=== PATIENT | male | born 1960 | race Caucasian/White ===

== ENCOUNTER 2016-07-27 11:07 | Inpatient (IN) | payer MEDICARE, MEDICAID ==
[~2016-07-27] VITALS: Ht 177.8 cm; Wt 81.6 kg
[~2016-07-27 11:07] MED LIST: AMBIEN10 MG ORAL; ATIVAN1 MG ORAL; BENADRYL25 M3 PO; CYMBALTA30 MG ORAL; DILAUDID4 MG ORAL; DOCUSATE SODIU100 MG ORAL; DULCOLAX STOOL100 M1 PO; IBUPROFEN800 MG ORAL; MELATONIN3 MG ORAL; METHADONE HCL5 MG PO; MIRTAZAPINE15 MG ORAL; MULTI VITAMIN1 EACH ORAL; NEURONTIN300 MG ORAL; RESTORIL7.5 MG ORAL; SENNO8.6 MG ORAL
--- NOTE | 2016-07-27 11:19 | Emergency Room Report ---
History of Present Illness General Chief Complaint: Generalized Weakness Source: EMS Present Illness HPI 55 YOM here for 1-2 days of dizziness, worse with moving head, better with eyes closed. Worse with change in position. No associated fever/chills, headache, nausea/vomiting, chest pain, SOB. Never had before. Didnt take any OTC meds. Patient also c/o chronic left shoulder pain and back pain. EMR indicated history of cervicalgia, LS and TS sprain, DJD of c-spine, previous neck and shoulder fx. Patient also stating he fell on left shoulder and "broke something " 1 month ago. Went to outside hospital, tells me to "call them, I dont know what I broke but it was something." States his doctor gives him dilaudid and methadone, requesting same here. Review of EMR: Recent DISCHARGE DIAGNOSES: Include: 1. Status post syncopal versus mechanical fall. 2. Lumbago. 3. Cervicalgia. 4. Lumbar sprain. 5. Thoracic sprain. 6. Degenerative joint disease, cervical spine. 7. Old rib fractures. 8. History of neck and shoulder fracture in 2014. 9. Depression with anxiety. Allergies: Coded Allergies: No Known Allergies (Unverified , 08/10/13) Patient History Past Medical History: see triage record, old chart reviewed Past Surgical History: other - See HPI Pertinent Family History: none Social History: Denies: alcohol use, drug use, smoking Immunizations: UTD Reviewed Nursing Documentation: PMH: Agreed, PSxH: Agreed Nursing Documentation-PMH Past Medical History: No History, Except For Hx Hypertension: No Hx Asthma: No Hx COPD: No Hx Diabetes: No Hx Cancer: No Hx Gastrointestinal Problems: No Hx Neurological Problems: No - Neck & shoulder Fracture 08/11/2014 Hx Seizures: Yes Review of Systems All Other Systems: negative except mentioned in HPI Physical Exam Vital Signs Date Time Temp Pulse Resp B/P Pulse Ox O2 Delivery O2 Flow Rate FiO2 07/27/16 11:08 97.9 91 18 139/99 97 Room Air Sp02 EP Interpretation: reviewed, normal General Appearance: normal inspection, well appearing, no apparent distress, alert, GCS 15, non-toxic Head: normocephalic, atraumatic Eyes: bilateral eye EOMI, bilateral eye PERRL, bilateral eye other - Horizontal nystagmus ENT: normal ENT inspection, hearing grossly normal, normal voice, other - + rodríguez hallpike maneuver positive R>L Neck: normal inspection Respiratory: normal inspection, lungs clear, normal breath sounds, no respiratory distress, no retraction, no wheezing Cardiovascular #1: regular rate, rhythm, no edema Gastrointestinal: normal inspection, normal bowel sounds, non tender, soft, no guarding, no hernia Genitourinary: no CVA tenderness Musculoskeletal: normal inspection, back normal, normal range of motion, non- tender, no calf tenderness, Chris's Sign negative Neurologic: normal inspection, alert, oriented x3, responsive, 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 Afebrile. No focal neuro deficits. Low suspicion for SAH, meningitis, posterior CVA given well apperance Improved with PO valium Low suspicion for ACS as cause of dizzines given +rodríguez-hallpike, nystagmus - looks more like BPPV. No known CAD risk factors Also concern for narcotic-seeking behavior given multiple visits for chronic pain, asking specifically for dilaudid, on methadone currently DC back to [facility] with Meclizine, ativan for severe dizziness, and recommended ENT followup for BPPV Last Vital Signs Date Time Temp Pulse Resp B/P Pulse Ox O2 Delivery O2 Flow Rate FiO2 07/27/16 11:08 97.9 91 18 139/99 97 Room Air Status: improved Disposition: ASSISTED LIVING Scripts Lorazepam* (ATIVAN*) 0.5 Mg Tablet 0.5 MG ORAL once daily for vertigo for 7 Days, #10 TAB Prov: ANABELLE GAR M.D. 07/27/16 Meclizine Hcl* (MECLIZINE*) 25 Mg Tablet 25 MG ORAL THREE TIMES A DAY for 7 Days, #30 TAB Prov: ANAEBLLE GAR M.D. 07/27/16 ANABELLE GAR M.D. Jul 27, 2016 11:19
[2016-07-27 13:22] VITALS: BP 123/83
[2016-07-27] MEDS ORDERED: ATIVAN0.5 MG ORAL (13:26)
[2016-07-27] MEDS ORDERED: MECLIZINE HCL25 MG ORAL (13:26)
[2016-07-27 14:59] VITALS: BP 122/93
[2016-07-27 16:26] LABS: BASOPHILS % (AUTO) 0.8 % (0.0-2.0); EOSINOPHILS % (AUTO) 0.3 % (0.0-3.0); LYMPHOCYTES % (AUTO) 18.7 % (20.0-45.0); MEAN CORPUSCULAR HEMOGLOBIN 30.6 PG (27.0-31.0); MEAN CORPUSCULAR HGB CONC 33.3 G/DL (32.0-36.0); MEAN CORPUSCULAR VOLUME 92 FL (80-99); MEAN PLATELET VOLUME 8.7 FL (6.5-10.1); MONOCYTES % (AUTO) 7.6 % (1.0-10.0); NEUTROPHILS % (AUTO) 72.6 % (45.0-75.0); PLATELET COUNT 317 K/UL (150-450); RED BLOOD COUNT 5.07 M/UL (4.70-6.10); RED CELL DISTRIBUTION WIDTH 11.8 % (11.6-14.8); WHITE BLOOD COUNT 9.1 K/UL (4.8-10.8)
[2016-07-27 16:28] LABS: TROPONIN I < 0.30 ng/mL (<=0.30)
[2016-07-27 16:29] LABS: INR 1.1 (0.9-1.1); PROTHROMBIN TIME 10.9 SEC (9.30-11.50)
[2016-07-27 16:34] LABS: ALANINE AMINOTRANSFERASE 16 U/L (3-41); ALBUMIN/GLOBULIN RATIO 1.3 (1.0-2.7); ANION GAP 20 (5-15); ASPARTATE AMINO TRANSFERASE 18 U/L (5-40); CALCIUM 9.1 mg/dL (8.6-10.2); CARBON DIOXIDE 24 mEQ/L (20-30); CHLORIDE 97 mEQ/L (98-107); CREATININE 0.8 mg/dL (0.7-1.2); GLOMERULAR FILTRATION RATE > 60 mL/min (>60); HEMOLYSIS 44; LIPASE 15 U/L (< 60); POTASSIUM 3.9 mEQ/L (3.4-4.9); SODIUM 141 mEQ/L (135-145); TOTAL PROTEIN 7.2 g/dL (6.6-8.7)
[2016-07-27 17:50] VITALS: BP 118/96
[2016-07-27 18:35] VITALS: BP 108/78
[2016-07-27 20:00] VITALS: BP 112/80
[2016-07-27] MEDS: HYDROmorphone 4mg tab ORAL SCH (20:45)
[2016-07-27] MEDS ORDERED: LORazepam Inj 2mg/ml 1ml IV PRN (20:45)
[2016-07-27] MEDS ORDERED: Mylanta II UD 30ml ORAL PRN (20:45)
[2016-07-27] MEDS ORDERED: Morphine Sulfate 2mg/ml Inj IVP PRN (20:45)
[2016-07-27] MEDS ORDERED: Miralax 17gm pkt ORAL PRN (20:45)
[2016-07-27] MEDS ORDERED: Zolpidem 5mg tab ORAL PRN (20:45)
[2016-07-27] MEDS: LORazepam 0.5mg tab ORAL SCH (22:57)
[2016-07-28] VITALS: BP 114/78
[2016-07-28] MEDS: HYDROmorphone 4mg tab ORAL SCH ×6 (00:30→20:36)
[2016-07-28 04:00] VITALS: BP 129/76
[2016-07-28] MEDS: LORazepam 0.5mg tab ORAL SCH ×3 (05:47→21:46)
[2016-07-28 06:22] LABS: BASOPHILS % (AUTO) 0.9 % (0.0-2.0); EOSINOPHILS % (AUTO) 1.8 % (0.0-3.0); LYMPHOCYTES % (AUTO) 29.8 % (20.0-45.0); MEAN CORPUSCULAR HEMOGLOBIN 30.9 PG (27.0-31.0); MEAN CORPUSCULAR HGB CONC 33.6 G/DL (32.0-36.0); MEAN CORPUSCULAR VOLUME 92 FL (80-99); MONOCYTES % (AUTO) 9.9 % (1.0-10.0); NEUTROPHILS % (AUTO) 57.6 % (45.0-75.0); PLATELET COUNT 309 K/UL (150-450); RED BLOOD COUNT 4.79 M/UL (4.70-6.10); WHITE BLOOD COUNT 6.8 K/UL (4.8-10.8)
[2016-07-28 06:34] LABS: APPEARANCE,URINE CLEAR; KETONES,URINE NEGATIVE (NEGATIVE); LEUKOCYTE ESTERASE ,URINE NEGATIVE (NEGATIVE); NITRITE,URINE NEGATIVE (NEGATIVE); PH,URINE 6 (4.5-8.0); PROTEIN,URINE NEGATIVE (NEGATIVE); UROBILINOGEN,URINE NORMAL MG/DL (0.0-1.0)
[2016-07-28 06:40] LABS: ALANINE AMINOTRANSFERASE 15 U/L (3-41); ALBUMIN/GLOBULIN RATIO 1.3 (1.0-2.7); ANION GAP 15 (5-15); ASPARTATE AMINO TRANSFERASE 14 U/L (5-40); CALCIUM 8.8 mg/dL (8.6-10.2); CARBON DIOXIDE 27 mEQ/L (20-30); CHLORIDE 97 mEQ/L (98-107); CHOLESTEROL 187 mg/dL (< 200); CHOLESTEROL/HDL RATIO 3.6 (3.3-4.4); CREATININE 0.8 mg/dL (0.7-1.2); GLOMERULAR FILTRATION RATE > 60 mL/min (>60); HEMOLYSIS 2; LDL CHOLESTEROL (CALC.) 121 mg/dL (60-99); POTASSIUM 3.7 mEQ/L (3.4-4.9); SODIUM 139 mEQ/L (135-145); TOTAL PROTEIN 6.6 g/dL (6.6-8.7)
[2016-07-28 08:28] VITALS: BP 108/79
[2016-07-28] MEDS: DULoxetine 30mg cap ORAL SCH (09:16)
[2016-07-28] MEDS: Meclizine 25mg tab ORAL SCH ×3 (09:17→17:47)
[2016-07-28 11:56] VITALS: BP 110/77
[2016-07-28 16:20] VITALS: BP 108/71
[2016-07-28 20:00] VITALS: BP 104/74
--- NOTE | 2016-07-28 20:40 | History and Physical ---
History of Present Illness General Date patient seen: Jul 28, 2016 Reason for Hospitalization: Generalized Weakness Present Illness HPI 55 year old male with hx of chronic back pain, resides in nursing homes, brought in here for 1-2 days of dizziness. Worse with change in position. No associated fever/chills, headache, nausea/vomiting, chest pain, SOB. Het also c/ o chronic left shoulder pain and back pain. he has history of cervicalgia, LS and TS sprain, DJD of c-spine, previous neck and shoulder fx. Allergies: Coded Allergies: No Known Allergies (Unverified , 08/10/13) Medication History Scheduled Docusate Sodium* (Docusate Sodium*), 100 MG ORAL TWICE A DAY, (Reported) Duloxetine Hcl* (Cymbalta*), 60 MG ORAL DAILY Gabapentin (Neurontin), 300 MG ORAL FOUR TIMES A DAY, (Reported) Hydromorphone HCl (Dilaudid), 4 MG ORAL Q4H, (Reported) Ibuprofen* (Motrin*), 800 MG ORAL BID, (Reported) Lorazepam* (Ativan*), 1 MG ORAL THREE TIMES A DAY Lorazepam* (Ativan*), 0.5 MG ORAL once daily Meclizine Hcl* (Meclizine*), 25 MG ORAL THREE TIMES A DAY Methadone Hcl* (Methadone*), 5 MG PO BID, (Reported) Mirtazapine* (Remeron*), 7.5 MG ORAL BEDTIME Multivitamin (Multi Vitamin Daily), 1 TAB ORAL DAILY, (Reported) Sennosides* (Senno*), 2 TAB ORAL BEDTIME, (Reported) Temazepam* (Restoril*), 7.5 MG ORAL BEDTIME, (Reported) Scheduled PRN Docusate Sodium (Dulcolax Stool Softener), 100 MG PO BID PRN for Constipation, ( Reported) Melatonin (Melatonin), 9 MG ORAL BEDTIME PRN for Insomnia, (Reported) Zolpidem Tartrate* (Ambien*), 10 MG ORAL BEDTIME PRN for Insomnia, (Reported) Miscellaneous Medications Diphenhydramine HCl (Benadryl), 25 MG PO, (Reported) Patient History Healthcare decision maker Resuscitation status Full Code Advanced Directive on File Review of Systems All Other Systems: negative except mentioned in HPI Physical Exam General Appearance: WD/WN Lines, tubes and drains: peripheral HEENT: normocephalic, atraumatic Neck: non-tender, normal alignment Respiratory/Chest: chest wall non-tender, lungs clear Cardiovascular/Chest: normal peripheral pulses, normal rate Abdomen: normal bowel sounds, non tender Genitourinary/Rectal: normal genital exam Extremities: normal range of motion Last 24 Hour Vital Signs Date Time Temp Pulse Resp B/P Pulse Ox O2 Delivery O2 Flow Rate FiO2 07/28/16 18:47 96.3 07/28/16 18:07 96.3 07/28/16 16:20 96.3 94 20 108/71 96 Room Air 07/28/16 11:56 97.0 83 19 110/77 97 Room Air 83 07/28/16 08:28 97.8 85 19 108/79 95 Room Air 85 07/28/16 04:00 96.8 65 20 129/76 98 Room Air 07/28/16 00:00 96.8 66 20 114/78 96 Room Air 07/27/16 20:45 98.4 Intake and Output 07/27/16 07/28/16 19:00 07:00 Intake Total 120 ml 580 ml Output Total 400 ml Balance 120 ml 180 ml Intake Oral 120 ml 580 ml Output Urine Total 400 ml # Voids 1 Laboratory Tests Test 07/28/16 05:20 07/28/16 05:40 White Blood Count 6.8 K/UL (4.8-10.8) Red Blood Count 4.79 M/UL (4.70-6.10) Hemoglobin 14.8 G/DL (14.2-18.0) Hematocrit 44.0 % (42.0-52.0) Mean Corpuscular Volume 92 FL (80-99) Mean Corpuscular Hemoglobin 30.9 PG (27.0-31.0) Mean Corpuscular Hemoglobin Concent 33.6 G/DL (32.0-36.0) Red Cell Distribution Width 12.0 % (11.6-14.8) Platelet Count 309 K/UL (150-450) Mean Platelet Volume 9.0 FL (6.5-10.1) Neutrophils (%) (Auto) 57.6 % (45.0-75.0) Lymphocytes (%) (Auto) 29.8 % (20.0-45.0) Monocytes (%) (Auto) 9.9 % (1.0-10.0) Eosinophils (%) (Auto) 1.8 % (0.0-3.0) Basophils (%) (Auto) 0.9 % (0.0-2.0) Sodium Level 139 mEQ/L (135-145) Potassium Level 3.7 mEQ/L (3.4-4.9) Chloride Level 97 mEQ/L (98-107) L Carbon Dioxide Level 27 mEQ/L (20-30) Anion Gap 15 (5-15) Blood Urea Nitrogen 9 mg/dL (7-23) Creatinine 0.8 mg/dL (0.7-1.2) Estimat Glomerular Filtration Rate > 60 mL/min (>60) Glucose Level 88 mg/dL (74-106) Calcium Level 8.8 mg/dL (8.6-10.2) Total Bilirubin 0.3 mg/dL (0.0-1.2) Aspartate Amino Transf (AST/SGOT) 14 U/L (5-40) Alanine Aminotransferase (ALT/SGPT) 15 U/L (3-41) Alkaline Phosphatase 107 U/L (40-129) Total Protein 6.6 g/dL (6.6-8.7) Albumin 3.8 g/dL (3.5-5.2) Globulin 2.8 g/dL Albumin/Globulin Ratio 1.3 (1.0-2.7) Triglycerides Level 71 mg/dL (< 150) Cholesterol Level 187 mg/dL (< 200) LDL Cholesterol 121 mg/dL (60-99) H HDL Cholesterol 52 mg/dL (> 60) Cholesterol/HDL Ratio 3.6 (3.3-4.4) Thyroid Stimulating Hormone (TSH) 1.750 uIU/mL (0.300-4.500) Urine Color Pale yellow Urine Appearance Clear Urine pH 6 (4.5-8.0) Urine Specific [place] 1.005 (1.005-1.035) Urine Protein Negative (NEGATIVE) Urine Glucose (UA) Negative (NEGATIVE) Urine Ketones Negative (NEGATIVE) Urine Occult Blood Negative (NEGATIVE) Urine Nitrite Negative (NEGATIVE) Urine Bilirubin Negative (NEGATIVE) Urine Urobilinogen Normal MG/DL (0.0-1.0) Urine Leukocyte Esterase Negative (NEGATIVE) Urine Opiates Screen Negative (NEGATIVE) Urine Barbiturates Screen Negative (NEGATIVE) Phencyclidine (PCP) Screen Negative (NEGATIVE) Urine Amphetamines Screen Negative (NEGATIVE) Urine Benzodiazepines Screen Negative (NEGATIVE) Urine Cocaine Screen Negative (NEGATIVE) Urine Marijuana (THC) Screen Negative (NEGATIVE) Height (Feet): 5 Height (Inches): 10.00 Weight (Pounds): 180 Medications Current Medications Medications (Trade) Dose Ordered Sig/Nahomi Route PRN Reason Start Time Stop Time Status Last Admin Dose Admin Acetaminophen (Tylenol) 650 mg Q4H PRN ORAL fever 07/27/16 20:45 08/26/16 20:44 Al Hydroxide/Mg Hydroxide (Mylanta II) 30 ml Q6H PRN ORAL dyspepsia 07/27/16 20:45 08/26/16 20:44 Dextrose (Dextrose 50%) STAT PRN IV Hypoglycemia 07/27/16 20:45 08/26/16 20:44 Diazepam (Valium) 5 mg Q6H PRN ORAL For Anxiety 07/27/16 19:45 08/03/16 19:44 07/27/16 20:44 Diphenhydramine HCl (Benadryl) 25 mg EVERY 8 HOURS ORAL 07/27/16 22:00 08/26/16 21:59 07/28/16 13:27 Duloxetine HCl (Cymbalta) 60 mg DAILY ORAL 07/28/16 09:00 08/27/16 08:59 07/28/16 09:16 Gabapentin (Neurontin) 300 mg FOUR TIMES A DAY ORAL 07/27/16 21:00 08/26/16 20:59 07/28/16 17:47 Hydromorphone HCl (Dilaudid) 4 mg Q4H ORAL 07/27/16 20:45 08/03/16 20:44 07/28/16 17:08 Ibuprofen (Motrin) 800 mg BID ORAL 07/28/16 09:00 08/27/16 08:59 07/28/16 17:48 Lorazepam (Ativan 2mg/ml 1ml) 0.5 mg Q4H PRN IV For Anxiety 07/27/16 20:45 08/03/16 20:44 Lorazepam (Ativan) 0.5 mg EVERY 8 HOURS ORAL 07/27/16 22:00 08/03/16 21:59 07/28/16 13:27 Meclizine HCl (Antivert) 25 mg THREE TIMES A DAY ORAL 07/28/16 09:00 08/27/16 08:59 07/28/16 17:47 Methadone HCl (Methadone HCl) 5 mg BID ORAL 07/28/16 09:00 08/04/16 08:59 07/28/16 17:48 Mirtazapine (Remeron) 7.5 mg BEDTIME ORAL 07/27/16 21:00 08/26/16 20:59 07/27/16 22:57 Morphine Sulfate (Morphine Sulfate) 1 mg EVERY 4 HOURS PRN IVP For Pain 07/27/16 20:45 08/03/16 20:44 Ondansetron HCl (Zofran) 4 mg Q6H PRN IVP Nausea & Vomiting 07/27/16 20:45 08/26/16 20:44 Oxycodone/ Acetaminophen (Percocet 10/325) 1 tab Q4H PRN ORAL Severe Pain (Pain Scale 7-10) 07/27/16 19:45 08/03/16 19:44 07/27/16 20:45 Polyethylene Glycol (Miralax) 17 gm HSPRN PRN ORAL Constipation 07/27/16 20:45 08/26/16 20:44 Zolpidem Tartrate (Ambien) 5 mg HSPRN PRN ORAL Insomnia 07/27/16 20:45 08/26/16 20:44 Assessment/Plan Problem List: (1) Chronic neck pain ICD Codes: G89.29 - Other chronic pain; M54.2 - Chronic neck pain SNOMED: 8418213491256 (2) Multiple injuries due to trauma ICD Codes: T07 - Multiple injuries due to trauma SNOMED: 837292730 (3) Neck pain ICD Codes: M54.2 - Neck pain SNOMED: 87036796 (4) Cervical sprain ICD Codes: S13.9XXA - Sprain of joints and ligaments of unspecified parts of neck, initial encounter SNOMED: 747576662 (5) Malingering ICD Codes: Z76.5 - Malingerer [conscious simulation] SNOMED: 23085912 Assessment/Plan Neuro evaluation Pt/ot symptomatic treatment JULISSA JACOBS Jul 28, 2016 20:40
[2016-07-29] VITALS: BP 112/75
--- NOTE | 2016-07-29 | Cardiology Report ---
APPROVED REPORT EKG Measurement Heart [id number] Normal sinus rhythm Nonspecific T wave abnormality Abnormal ECG
[2016-07-29] MEDS: HYDROmorphone 4mg tab ORAL SCH ×6 (00:35→21:36)
[2016-07-29 04:00] VITALS: BP 109/75
[2016-07-29] MEDS: LORazepam 0.5mg tab ORAL SCH ×3 (05:32→21:36)
[2016-07-29 08:15] VITALS: BP 119/85
[2016-07-29] MEDS: Meclizine 25mg tab ORAL SCH ×3 (08:50→18:06)
[2016-07-29] MEDS: DULoxetine 30mg cap ORAL SCH (08:50)
[2016-07-29 11:30] VITALS: BP 117/77
[2016-07-29 16:00] VITALS: BP 107/76
--- NOTE | 2016-07-29 16:52 | Pulmonology Progress Note ---
Assessment/Plan Problems: (1) Chronic neck pain (2) Multiple injuries due to trauma (3) Neck pain (4) Cervical sprain (5) Malingering Assessment/Plan neuro evaluation pending pt/ot Subjective ROS Limited/Unobtainable: No Interval Events: no new complains Allergies: Coded Allergies: No Known Allergies (Unverified , 08/10/13) Objective Last 24 Hour Vital Signs Date Time Temp Pulse Resp B/P Pulse Ox O2 Delivery O2 Flow Rate FiO2 07/29/16 14:00 97.7 07/29/16 11:30 97.7 87 14 117/77 98 Room Air 07/29/16 09:49 97.2 07/29/16 08:15 97.2 91 16 119/85 98 Room Air 07/29/16 04:00 97.7 71 18 109/75 97 Room Air 07/29/16 00:00 97.3 68 18 112/75 96 Room Air 07/28/16 20:00 98.1 68 21 104/74 93 Room Air Intake and Output 07/28/16 07/29/16 19:00 07:00 Intake Total 360 ml 1300 ml Output Total 300 ml 600 ml Balance 60 ml 700 ml Intake Oral 360 ml 1300 ml Output Urine Total 300 ml 600 ml # Voids 2 3 General Appearance: WD/WN HEENT: normocephalic Respiratory/Chest: chest wall non-tender, lungs clear Cardiovascular: normal peripheral pulses, normal rate Abdomen: normal bowel sounds, soft, non tender Genitourinary: normal external genitalia Extremities: no clubbing Skin: no rash Microbiology Date/Time Source Procedure Growth Status 07/27/16 17:48 Nasal Nares MRSA Culture - Final NO METHICILLIN RESISTANT STAPH AUREUS... Complete 07/27/16 17:48 Rectum VRE Culture - Final NO VANCOMYCIN RESISTANT ENTEROCOCCUS ... Complete Current Medications Medications (Trade) Dose Ordered Sig/Nahomi Route PRN Reason Start Time Stop Time Status Last Admin Dose Admin Acetaminophen (Tylenol) 650 mg Q4H PRN ORAL fever 07/27/16 20:45 08/26/16 20:44 Al Hydroxide/Mg Hydroxide (Mylanta II) 30 ml Q6H PRN ORAL dyspepsia 07/27/16 20:45 08/26/16 20:44 Dextrose (Dextrose 50%) STAT PRN IV Hypoglycemia 07/27/16 20:45 08/26/16 20:44 Diazepam (Valium) 5 mg Q6H PRN ORAL For Anxiety 07/27/16 19:45 08/03/16 19:44 07/27/16 20:44 Diphenhydramine HCl (Benadryl) 25 mg EVERY 8 HOURS ORAL 07/27/16 22:00 08/26/16 21:59 07/29/16 14:00 Duloxetine HCl (Cymbalta) 60 mg DAILY ORAL 07/28/16 09:00 08/27/16 08:59 07/29/16 08:50 Gabapentin (Neurontin) 300 mg FOUR TIMES A DAY ORAL 07/27/16 21:00 08/26/16 20:59 07/29/16 13:01 Hydromorphone HCl (Dilaudid) 4 mg Q4H ORAL 07/27/16 20:45 08/03/16 20:44 07/29/16 13:01 Ibuprofen (Motrin) 800 mg BID ORAL 07/28/16 09:00 08/27/16 08:59 07/29/16 08:50 Lorazepam (Ativan 2mg/ml 1ml) 0.5 mg Q4H PRN IV For Anxiety 07/27/16 20:45 08/03/16 20:44 Lorazepam (Ativan) 0.5 mg EVERY 8 HOURS ORAL 07/27/16 22:00 08/03/16 21:59 07/29/16 14:00 Meclizine HCl (Antivert) 25 mg THREE TIMES A DAY ORAL 07/28/16 09:00 08/27/16 08:59 07/29/16 13:01 Methadone HCl (Methadone HCl) 5 mg BID ORAL 07/28/16 09:00 08/04/16 08:59 07/29/16 08:51 Mirtazapine (Remeron) 7.5 mg BEDTIME ORAL 07/27/16 21:00 08/26/16 20:59 07/28/16 20:36 Morphine Sulfate (Morphine Sulfate) 1 mg EVERY 4 HOURS PRN IVP For Pain 07/27/16 20:45 08/03/16 20:44 Ondansetron HCl (Zofran) 4 mg Q6H PRN IVP Nausea & Vomiting 07/27/16 20:45 08/26/16 20:44 Oxycodone/ Acetaminophen (Percocet 10/325) 1 tab Q4H PRN ORAL Severe Pain (Pain Scale 7-10) 07/27/16 19:45 08/03/16 19:44 07/27/16 20:45 Polyethylene Glycol (Miralax) 17 gm HSPRN PRN ORAL Constipation 07/27/16 20:45 08/26/16 20:44 Zolpidem Tartrate (Ambien) 5 mg HSPRN PRN ORAL Insomnia 07/27/16 20:45 08/26/16 20:44 JULISSA AJCOBS Jul 29, 2016 16:52
[2016-07-29 19:00] VITALS: BP 118/80
[2016-07-30] VITALS: BP 100/61
[2016-07-30] MEDS: HYDROmorphone 4mg tab ORAL SCH ×6 (00:52→20:53)
[2016-07-30 04:00] VITALS: BP 110/71
[2016-07-30] MEDS: LORazepam 0.5mg tab ORAL SCH ×3 (06:15→21:58)
[2016-07-30 08:00] VITALS: BP 98/70
[2016-07-30] MEDS: DULoxetine 30mg cap ORAL SCH (08:58)
[2016-07-30] MEDS: Meclizine 25mg tab ORAL SCH ×3 (08:59→18:43)
--- NOTE | 2016-07-30 10:26 | Diagnostic Imaging Report ---
APPROVED REPORT CPT Code: 41413 Present Symptoms Comments: Pain BILATERAL: Imaging reveals a patent deep venous system bilaterally. There is no evidence of thrombus within the femoral, popliteal or tibial segments. The greater saphenous veins are also within normal limits. Doppler indicates normal spontaneous flow within these segments.
[2016-07-30 12:00] VITALS: BP 101/63
--- NOTE | 2016-07-30 12:56 | Neurology Progress Note ---
Interim History Interim History ROS Limited/Unobtainable: No Review of Systems Neuro Review of Systems #[id number] Objective Physical Exam Last Vital Signs Date Time Temp Pulse Resp B/P Pulse Ox O2 Delivery O2 Flow Rate FiO2 07/30/16 09:57 96.6 07/30/16 08:00 63 18 98/70 95 Room Air WILMA GRIGGS Jul 30, 2016 12:56
--- NOTE | 2016-07-30 15:31 | Diagnostic Imaging Report ---
Indication: PAIN Technique: 3 views of the left shoulder Comparison: none Findings: No acute fractures. No dislocations. There is an old fracture deformity of the left distal clavicle. There are old healed fracture deformities of multiple left ribs. Impression:No acute process
--- NOTE | 2016-07-30 15:34 | Diagnostic Imaging Report ---
Indications: Neck pain Technique: Four views of the cervical spine Comparison: 08/10/2013 Findings:Exam is limited, due to limited ability to position the patient and limited ability of patient to cooperate. A lateral view, the cervical spine is well demonstrated to the bottom of C4. Remaining vertebral segments are not well demonstrated, although somewhat visualized on the swimmer's view. No prevertebral soft tissue swelling. There is slight straightening of the normal cervical lordosis, otherwise normal bony alignment. No definite acute fractures. There is degenerative disc space narrowing at C4-5 and C5-6. There is suggestion of degenerative neural foraminal stenosis at C6-7. The right neural foramina are not well visualized due to suboptimal positioning. Impression:. Limited exam, as described. No definite acute bony trauma Degenerative changes, as described
[2016-07-30 15:55] VITALS: BP 126/87
--- NOTE | 2016-07-30 16:01 | Diagnostic Imaging Report ---
Indication: AMS headache and dizziness Technique: sagittal T1 fast spin echo, axial T1 and T2 FLAIR PROPELLER, axial T2 FS PROPELLER, T2* GRE, axial diffusion weighted images, post contrast axial and coronal T1 FLAIR PROPELLER images. ADC and exponential ADC maps generated Comparison: 09/06/2015 CT scan Findings: . No abnormal areas of restricted diffusion to suggest acute infarction. No acute hemorrhage or edema. No mass effect nor midline shift. No abnormal contrast enhancement. Normal size ventricles and extra axial CSF spaces. Visualized orbits and sinuses are unremarkable. Vascular flow voids are preserved. Impression: Negative for acute intracranial bleed, mass effect, infarct, or contrast enhancing lesion
[2016-07-30 20:00] VITALS: BP 120/79
--- NOTE | 2016-07-30 22:17 | Consultation ---
DATE OF CONSULTATION: 07/30/2016 NEUROLOGICAL CONSULTATION CONSULTING PHYSICIAN: Dayron Schroeder M.D. REFERRING PHYSICIAN: Haris Lopez M.D. HISTORY OF PRESENT ILLNESS: The patient is a 55-year-old man, a resident of a nursing facility, seen neurological consultation to evaluate the recent onset of profound generalized weakness, inability to ambulate, positional dizziness, and severe intractable pain in his upper back and left shoulder. The patient informed me that he has a new evidence of left shoulder pain after he fell down and "fractured shoulder." In addition, pain from left arm radiating to left upper extremity, which he attributed to recently diagnosed C1, C2, and C3 injuries. The patient informed me that two weeks ago, he fell and fractured his left shoulder. He was taken to outside hospital, but no treatment was offered. On current admission, he was complaining of two days of dizziness, increasing with head movement, which he never had before. He complained of chronic pain in his left shoulder and upper back region. He was admitted. On admission, his vital signs are stable except blood pressure 139/99 and temperature 97.9. IMAGING STUDIES: He had venous duplex study. No thrombi noted. LABORATORY DATA: Laboratory work was obtained revealing normal CBC and coagulation. Chemistry panel was unremarkable except anion gap of 20. Lipid panel unremarkable except LDL 121. Normal lipase, TSH, and troponins. Drug screen is negative. Urinalysis was normal. Since admission to present, he indicates a sudden improvement. MEDICATIONS: His current treatment list includes Valium p.r.n., Advil p.r.n., Cymbalta 60 mg daily, Neurontin 300 mg q.i.d., Dilaudid 4 mg q.4 h., ibuprofen 800 mg b.i.d., lorazepam 0.5 mg q.8 h., meclizine 25 mg t.i.d., methadone 5 mg b.i.d., Remeron 7.5 mg at bedtime, oxycodone p.r.n., and zolpidem. PAST MEDICAL HISTORY: The patient, who is a very poor historian, was able to inform that he was in normal state of health until 2012 where he had a fall with a fracture of the cervical spine. In addition, two years ago, he had another fall injuring his spine in the mid dorsal area. The patient indicates since then, he is unable to ambulate, spends most of the day in bed or walker He is unaware of having any medical issues, otherwise, including no high blood pressure, no diabetes. The patient treated for chronic pain, opiate dependent. His previous admissions to this facility starting 2013 related to chronic neck pain. The patient treated for depression and anxiety. FAMILY HISTORY: Noncontributory. SOCIAL HISTORY: Resident of a nursing facility. The patient now indicates that he is in class action with nursing facility. REVIEW OF SYMPTOMS: Denies headaches, but admitted to having positional dizziness on admission, now improved. He has a persistent pain in the upper back, neck, and left shoulder, radiating to left upper extremity, which he feels it is a new finding. No urine or bowel incontinence. No chest pain. No palpitations. No respiratory problems. Denies drug abuse in the past. PHYSICAL EXAMINATION: GENERAL: A well-developed, well-nourished man, lying in bed, working on his computer. VITAL SIGNS: Stable. Blood pressure 98/70 and temperature 96.6. HEENT: Head, normocephalic. No evidence of trauma. Eyes, ears, and throat are clear. NECK: Supple with range of motion limited on lateral bending. THORACIC AND LUMBAR SPINE: No deformities. EXTREMITIES: Upper and lower extremities without clubbing, cyanosis, or edema. There is acute tenderness on palpation of the left shoulder. The patient refused to lift stating that this causes severe pain. There is a diffuse tenderness in the left arm as well. NEUROLOGIC: Mental Status: The patient is alert and oriented x3. Speech is fluent with no evidence of aphasia or apraxia. Emotionally labile, tense, and anxious. He had difficulties recalling dates and events of his medical history. CRANIAL NERVES: Cranial Nerve II: Pupils both responding to light and accommodation. Extraocular movement abnormal. There is an irregular left lateral gaze. Nystagmus with limited range of motion in his gaze on the right eye. CRANIAL NERVE V: Normal corneal responses. CRANIAL NERVE VII: No facial asymmetry. CRANIAL NERVE VIII: Grossly normal hearing. CRANIAL NERVES IX THROUGH XII: With normal limits. MOTOR EXAMINATION: Normal muscle tone. Strength 1/5 in both lower extremities and 5/5 in the right upper extremity, antalgic left arm. Deep tendon reflexes are brisk at 3+ bilaterally. Plantar response is mute. SENSORY EXAMINATION: Normal to pin stimulation. In both upper and lower extremities, no sensory level noted. GAIT: Not tested. IMPRESSION: 1. This 55-year-old man with a history of recent falls, presenting with cervical radiculopathy radiating to left arm. Rule out left shoulder fracture. 2. Nystagmus with a limited range of motion. Rule out a brainstem abnormality. Rule out toxic encephalopathy. 3. Positional dizziness, probable benign positional vertigo. 4. Anxiety and depression. 5. Chronic pain syndrome, opiate dependent. RECOMMENDATIONS: MRI of the brain. MRI of the cervical spine. X-ray of left shoulder. Pain management. Psychiatry evaluation. Thank you for allowing me to see this interesting patient in neurological consultation. Dayron Schroeder M.D. DR: ALYSSA JOB#: [id number] CC:
--- NOTE | 2016-07-30 23:15 | Pulmonology Progress Note ---
Assessment/Plan Problems: (1) Chronic neck pain (2) Multiple injuries due to trauma (3) Neck pain (4) Cervical sprain (5) Malingering Assessment/Plan neuro evaluation pending pt/ot Subjective ROS Limited/Unobtainable: No Gastrointestinal/Abdominal: Reports: nausea Neurologic: Reports: weakness Musculoskeletal: Reports: pain, stiffness, swelling Allergies: Coded Allergies: No Known Allergies (Unverified , 08/10/13) Objective Last 24 Hour Vital Signs Date Time Temp Pulse Resp B/P Pulse Ox O2 Delivery O2 Flow Rate FiO2 07/30/16 21:52 97.0 07/30/16 20:00 98.0 64 17 120/79 100 Room Air 07/30/16 15:55 97.0 97 16 126/87 96 Room Air 07/30/16 12:00 96.6 78 18 101/63 95 Room Air 07/30/16 09:57 96.6 07/30/16 08:00 96.6 63 18 98/70 95 Room Air 07/30/16 04:00 97.3 76 20 110/71 96 Room Air 07/30/16 00:00 98.1 75 20 100/61 96 Room Air Intake and Output 07/29/16 07/30/16 19:00 07:00 Intake Total 1800 ml 320 ml Output Total 850 ml 2200 ml Balance 950 ml -1880 ml Intake Oral 1800 ml 320 ml Output Urine Total 850 ml 2200 ml General Appearance: no acute distress HEENT: normocephalic, atraumatic, PERRL Respiratory/Chest: chest wall non-tender, decreased breath sounds, accessory muscle use Cardiovascular: normal peripheral pulses, normal rate, regular rhythm, no JVD Abdomen: normal bowel sounds, soft, non tender, no organomegaly Genitourinary: normal external genitalia Extremities: no cyanosis Skin: no rash, no lesions 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, 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 deficits Current Medications Medications (Trade) Dose Ordered Sig/Nahomi Route PRN Reason Start Time Stop Time Status Last Admin Dose Admin Acetaminophen (Tylenol) 650 mg Q4H PRN ORAL fever 07/27/16 20:45 08/26/16 20:44 Al Hydroxide/Mg Hydroxide (Mylanta II) 30 ml Q6H PRN ORAL dyspepsia 07/27/16 20:45 08/26/16 20:44 Dextrose (Dextrose 50%) STAT PRN IV Hypoglycemia 07/27/16 20:45 08/26/16 20:44 Diazepam (Valium) 5 mg Q6H PRN ORAL For Anxiety 07/27/16 19:45 08/03/16 19:44 07/27/16 20:44 Diphenhydramine HCl (Benadryl) 25 mg EVERY 8 HOURS ORAL 07/27/16 22:00 08/26/16 21:59 07/30/16 21:57 Duloxetine HCl (Cymbalta) 60 mg DAILY ORAL 07/28/16 09:00 08/27/16 08:59 07/30/16 08:58 Gabapentin (Neurontin) 300 mg FOUR TIMES A DAY ORAL 07/27/16 21:00 08/26/16 20:59 07/30/16 20:54 Hydromorphone HCl (Dilaudid) 4 mg Q4H ORAL 07/27/16 20:45 08/03/16 20:44 07/30/16 20:53 Ibuprofen (Motrin) 800 mg BID ORAL 07/28/16 09:00 08/27/16 08:59 07/30/16 08:58 Lorazepam (Ativan 2mg/ml 1ml) 0.5 mg Q4H PRN IV For Anxiety 07/27/16 20:45 08/03/16 20:44 Lorazepam (Ativan) 0.5 mg EVERY 8 HOURS ORAL 07/27/16 22:00 08/03/16 21:59 07/30/16 21:58 Meclizine HCl (Antivert) 25 mg THREE TIMES A DAY ORAL 07/28/16 09:00 08/27/16 08:59 07/30/16 18:43 Methadone HCl (Methadone HCl) 5 mg BID ORAL 07/28/16 09:00 08/04/16 08:59 07/30/16 18:43 Mirtazapine (Remeron) 7.5 mg BEDTIME ORAL 07/27/16 21:00 08/26/16 20:59 07/30/16 20:54 Morphine Sulfate (Morphine Sulfate) 1 mg EVERY 4 HOURS PRN IVP For Pain 07/27/16 20:45 08/03/16 20:44 Ondansetron HCl (Zofran) 4 mg Q6H PRN IVP Nausea & Vomiting 07/27/16 20:45 08/26/16 20:44 Oxycodone/ Acetaminophen (Percocet 10/325) 1 tab Q4H PRN ORAL Severe Pain (Pain Scale 7-10) 07/27/16 19:45 08/03/16 19:44 07/27/16 20:45 Polyethylene Glycol (Miralax) 17 gm HSPRN PRN ORAL Constipation 07/27/16 20:45 08/26/16 20:44 Zolpidem Tartrate (Ambien) 5 mg HSPRN PRN ORAL Insomnia 07/27/16 20:45 08/26/16 20:44 JULISSA JACOBS Jul 30, 2016 23:15
[2016-07-31] VITALS: BP 118/76
[2016-07-31] MEDS: HYDROmorphone 4mg tab ORAL SCH ×6 (00:54→21:23)
[2016-07-31 04:00] VITALS: BP 115/78
[2016-07-31] MEDS: LORazepam 0.5mg tab ORAL SCH ×3 (05:51→22:25)
[2016-07-31 08:21] VITALS: BP 116/73
[2016-07-31] MEDS: Meclizine 25mg tab ORAL SCH ×3 (08:46→17:19)
[2016-07-31] MEDS: DULoxetine 30mg cap ORAL SCH (08:46)
[2016-07-31 11:56] VITALS: BP 100/70
[2016-07-31 16:00] VITALS: BP 109/70
[2016-07-31 20:00] VITALS: BP 109/68
--- NOTE | 2016-07-31 23:31 | Pulmonology Progress Note ---
Assessment/Plan Problems: (1) Chronic neck pain (2) Multiple injuries due to trauma (3) Neck pain (4) Cervical sprain (5) Malingering Assessment/Plan neuro evaluation pending pt/ot Subjective ROS Limited/Unobtainable: No Constitutional: Reports: anorexia, fatigue Neurologic: Reports: headache, numbness, weakness Psychiatric: Reports: anxiety, depression Musculoskeletal: Reports: pain, stiffness, swelling Allergies: Coded Allergies: No Known Allergies (Unverified , 08/10/13) Objective Last 24 Hour Vital Signs Date Time Temp Pulse Resp B/P Pulse Ox O2 Delivery O2 Flow Rate FiO2 07/31/16 20:00 97.9 82 18 109/68 97 Room Air 07/31/16 16:00 98.2 78 18 109/70 94 Room Air 07/31/16 11:56 97.5 66 19 100/70 96 Room Air 07/31/16 08:21 97.6 85 19 116/73 96 Room Air 07/31/16 05:49 97.7 07/31/16 04:00 97.7 77 18 115/78 97 Room Air 07/31/16 00:00 97.8 63 18 118/76 100 Room Air Intake and Output 07/30/16 07/31/16 19:00 07:00 Intake Total 570 ml 980 ml Output Total 450 ml 1300 ml Balance 120 ml -320 ml Intake Oral 570 ml 980 ml Output Urine Total 450 ml 1300 ml # Voids 3 General Appearance: no acute distress HEENT: normocephalic, atraumatic, PERRL Respiratory/Chest: chest wall non-tender, lungs clear, decreased breath sounds Cardiovascular: normal peripheral pulses, normal rate, regular rhythm, no JVD Abdomen: normal bowel sounds, soft, non tender, no organomegaly, non distended Genitourinary: normal external genitalia Extremities: no cyanosis Skin: no rash, lesions 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, 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 deficits, oriented x 3, depressed affect Current Medications Medications (Trade) Dose Ordered Sig/Nahomi Route PRN Reason Start Time Stop Time Status Last Admin Dose Admin Acetaminophen (Tylenol) 650 mg Q4H PRN ORAL fever 07/27/16 20:45 08/26/16 20:44 Al Hydroxide/Mg Hydroxide (Mylanta II) 30 ml Q6H PRN ORAL dyspepsia 07/27/16 20:45 08/26/16 20:44 Dextrose (Dextrose 50%) STAT PRN IV Hypoglycemia 07/27/16 20:45 08/26/16 20:44 Diazepam (Valium) 5 mg Q6H PRN ORAL For Anxiety 07/27/16 19:45 08/03/16 19:44 07/27/16 20:44 Diphenhydramine HCl (Benadryl) 25 mg EVERY 8 HOURS ORAL 07/27/16 22:00 08/26/16 21:59 07/31/16 22:25 Duloxetine HCl (Cymbalta) 60 mg DAILY ORAL 07/28/16 09:00 08/27/16 08:59 07/31/16 08:46 Gabapentin (Neurontin) 300 mg FOUR TIMES A DAY ORAL 07/27/16 21:00 08/26/16 20:59 07/31/16 21:23 Hydromorphone HCl (Dilaudid) 4 mg Q4H ORAL 07/27/16 20:45 08/03/16 20:44 07/31/16 21:23 Ibuprofen (Motrin) 800 mg BID ORAL 07/28/16 09:00 08/27/16 08:59 07/31/16 17:18 Lorazepam (Ativan 2mg/ml 1ml) 0.5 mg Q4H PRN IV For Anxiety 07/27/16 20:45 08/03/16 20:44 Lorazepam (Ativan) 0.5 mg EVERY 8 HOURS ORAL 07/27/16 22:00 08/03/16 21:59 07/31/16 22:25 Meclizine HCl (Antivert) 25 mg THREE TIMES A DAY ORAL 07/28/16 09:00 08/27/16 08:59 07/31/16 17:19 Methadone HCl (Methadone HCl) 5 mg BID ORAL 07/28/16 09:00 08/04/16 08:59 07/31/16 17:18 Mirtazapine (Remeron) 15 mg BEDTIME ORAL 07/31/16 21:00 08/30/16 20:59 07/31/16 21:23 Morphine Sulfate (Morphine Sulfate) 1 mg EVERY 4 HOURS PRN IVP For Pain 07/27/16 20:45 08/03/16 20:44 Ondansetron HCl (Zofran) 4 mg Q6H PRN IVP Nausea & Vomiting 07/27/16 20:45 08/26/16 20:44 Oxycodone/ Acetaminophen (Percocet 10/325) 1 tab Q4H PRN ORAL Severe Pain (Pain Scale 7-10) 07/27/16 19:45 08/03/16 19:44 07/27/16 20:45 Polyethylene Glycol (Miralax) 17 gm HSPRN PRN ORAL Constipation 07/27/16 20:45 08/26/16 20:44 Zolpidem Tartrate (Ambien) 5 mg HSPRN PRN ORAL Insomnia 07/27/16 20:45 08/26/16 20:44 JULISSA JACOBS Jul 31, 2016 23:31
[2016-08-01] VITALS: BP 111/72
[2016-08-01] MEDS: HYDROmorphone 4mg tab ORAL SCH ×6 (00:49→20:53)
--- NOTE | 2016-08-01 01:29 | Consultation ---
DATE OF CONSULTATION: 07/31/2016 HISTORY OF PRESENT ILLNESS: This is a 55-year-old white male with a history of chronic back pain, anxiety disorder, and depression. He has been admitted to the hospital with a chief complaint of generalized weakness. Psychiatry was consulted as the patient complains of anxiety and insomnia. During the evaluation, the patient appeared to be bizarre and was focused on looking on his computer. He denied having a history of psychotic disorder. Denies any psychiatric hospitalizations. No suicide attempts in the past. PAST MEDICAL HISTORY: Significant for chronic back pain, dizziness, weakness, and hypertension. ALLERGIES: No known drug allergies. MEDICATIONS: At home include temazepam, sennosides, multivitamins, mirtazapine, methadone, meclizine, lorazepam, hydromorphone, gabapentin, and Cymbalta. SUBSTANCE ABUSE HISTORY: No history of illicit drug use or alcohol. However, it appears that the patient is taking opioid pain medication. MENTAL STATUS EXAMINATION: The patient is oriented 4x4. Mood is dysphoric. Affect was blunted and congruent with mood. Thought process is concrete. Thought content - there is no suicidal or homicidal ideation. ASSESSMENT: AXIS I: Major depressive disorder. Anxiety disorder. AXIS II: Deferred. AXIS III: As above. AXIS IV: Low. AXIS V: Global assessment of functioning 75. PLAN: 1. The patient will be continued on Cymbalta 60 mg daily. 2. We will increase the Remeron to 15 mg p.o. nightly. 3. We will continue to follow and readjust the medication. Audelai Thornton M.D. DR: DESTINY JOB#: [id number] CC:
[2016-08-01] MEDS: LORazepam 0.5mg tab ORAL SCH ×3 (06:42→22:31)
[2016-08-01 08:15] VITALS: BP 115/75
[2016-08-01] MEDS: Meclizine 25mg tab ORAL SCH ×3 (09:06→17:50)
[2016-08-01] MEDS: DULoxetine 30mg cap ORAL SCH (09:07)
[2016-08-01 12:00] VITALS: BP 103/68
[2016-08-01 16:00] VITALS: BP 111/66
--- NOTE | 2016-08-01 20:39 | Pulmonology Progress Note ---
Assessment/Plan Problems: (1) Chronic neck pain (2) Multiple injuries due to trauma (3) Neck pain (4) Cervical sprain (5) Malingering Assessment/Plan neuro evaluation pending pt/ot Subjective ROS Limited/Unobtainable: No Constitutional: Reports: chills, fatigue Neurologic: Reports: confusion, weakness Psychiatric: Reports: anxiety, depression Allergies: Coded Allergies: No Known Allergies (Unverified , 08/10/13) Objective Last 24 Hour Vital Signs Date Time Temp Pulse Resp B/P Pulse Ox O2 Delivery O2 Flow Rate FiO2 08/01/16 16:00 97.7 99 18 111/66 95 Room Air 08/01/16 12:00 98.1 73 23 103/68 97 Room Air 08/01/16 08:15 97.7 83 22 115/75 99 Room Air 08/01/16 00:00 97.7 76 18 111/72 94 Room Air Intake and Output 07/31/16 08/01/16 19:00 07:00 Intake Total 450 ml 960 ml Output Total 500 ml 2310 ml Balance -50 ml -1350 ml Intake Oral 450 ml 960 ml Output Urine Total 500 ml 2310 ml # Voids 2 General Appearance: no acute distress HEENT: normocephalic, atraumatic, PERRL Respiratory/Chest: chest wall non-tender, lungs clear, decreased breath sounds , accessory muscle use Cardiovascular: normal peripheral pulses, normal rate, regular rhythm, no JVD Abdomen: normal bowel sounds, soft, non tender, no organomegaly, non distended Genitourinary: normal external genitalia Extremities: no cyanosis Skin: no rash, no lesions 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, 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 deficits Current Medications Medications (Trade) Dose Ordered Sig/Nahomi Route PRN Reason Start Time Stop Time Status Last Admin Dose Admin Acetaminophen (Tylenol) 650 mg Q4H PRN ORAL fever 07/27/16 20:45 08/26/16 20:44 Al Hydroxide/Mg Hydroxide (Mylanta II) 30 ml Q6H PRN ORAL dyspepsia 07/27/16 20:45 08/26/16 20:44 Dextrose (Dextrose 50%) STAT PRN IV Hypoglycemia 07/27/16 20:45 08/26/16 20:44 Diazepam (Valium) 5 mg Q6H PRN ORAL For Anxiety 07/27/16 19:45 08/03/16 19:44 07/27/16 20:44 Diphenhydramine HCl (Benadryl) 25 mg EVERY 8 HOURS ORAL 07/27/16 22:00 08/26/16 21:59 08/01/16 14:16 Duloxetine HCl (Cymbalta) 60 mg DAILY ORAL 07/28/16 09:00 08/27/16 08:59 08/01/16 09:07 Gabapentin (Neurontin) 300 mg FOUR TIMES A DAY ORAL 07/27/16 21:00 08/26/16 20:59 08/01/16 17:50 Hydromorphone HCl (Dilaudid) 4 mg Q4H ORAL 07/27/16 20:45 08/03/16 20:44 08/01/16 16:42 Ibuprofen (Motrin) 800 mg BID ORAL 07/28/16 09:00 08/27/16 08:59 08/01/16 17:50 Lorazepam (Ativan 2mg/ml 1ml) 0.5 mg Q4H PRN IV For Anxiety 07/27/16 20:45 08/03/16 20:44 Lorazepam (Ativan) 0.5 mg EVERY 8 HOURS ORAL 07/27/16 22:00 08/03/16 21:59 08/01/16 14:16 Meclizine HCl (Antivert) 25 mg THREE TIMES A DAY ORAL 07/28/16 09:00 08/27/16 08:59 08/01/16 17:50 Methadone HCl (Methadone HCl) 5 mg BID ORAL 07/28/16 09:00 08/04/16 08:59 08/01/16 17:50 Mirtazapine (Remeron) 15 mg BEDTIME ORAL 07/31/16 21:00 08/30/16 20:59 07/31/16 21:23 Morphine Sulfate (Morphine Sulfate) 1 mg EVERY 4 HOURS PRN IVP For Pain 07/27/16 20:45 08/03/16 20:44 Ondansetron HCl (Zofran) 4 mg Q6H PRN IVP Nausea & Vomiting 07/27/16 20:45 08/26/16 20:44 Oxycodone/ Acetaminophen (Percocet 10/325) 1 tab Q4H PRN ORAL Severe Pain (Pain Scale 7-10) 07/27/16 19:45 08/03/16 19:44 07/27/16 20:45 Polyethylene Glycol (Miralax) 17 gm HSPRN PRN ORAL Constipation 07/27/16 20:45 08/26/16 20:44 Zolpidem Tartrate (Ambien) 5 mg HSPRN PRN ORAL Insomnia 07/27/16 20:45 08/26/16 20:44 JULISSA JACOBS Aug 01, 2016 20:39
[2016-08-02] VITALS: BP 95/64
[2016-08-02] MEDS: HYDROmorphone 4mg tab ORAL SCH ×6 (00:58→21:46)
[2016-08-02 04:00] VITALS: BP 92/70
[2016-08-02] MEDS: LORazepam 0.5mg tab ORAL SCH ×3 (06:00→22:25)
[2016-08-02] MEDS: Meclizine 25mg tab ORAL SCH ×3 (08:16→17:17)
[2016-08-02] MEDS: DULoxetine 30mg cap ORAL SCH (08:17)
[2016-08-02 08:42] VITALS: BP 106/66
[2016-08-02 11:39] VITALS: BP 101/77
[2016-08-02 16:00] VITALS: BP 117/70
[2016-08-02 19:00] VITALS: BP 102/59
--- NOTE | 2016-08-02 23:27 | Pulmonology Progress Note ---
Assessment/Plan Problems: (1) Chronic neck pain (2) Multiple injuries due to trauma (3) Neck pain (4) Cervical sprain (5) Malingering Assessment/Plan neuro evaluation pending pt/ot Subjective ROS Limited/Unobtainable: No Constitutional: Reports: anorexia, fatigue Neurologic: Reports: weakness Allergies: Coded Allergies: No Known Allergies (Unverified , 08/10/13) Objective Last 24 Hour Vital Signs Date Time Temp Pulse Resp B/P Pulse Ox O2 Delivery O2 Flow Rate FiO2 08/02/16 19:00 97.3 83 20 102/59 96 Room Air 08/02/16 17:16 97.3 08/02/16 16:00 97.3 85 20 117/70 96 Room Air 08/02/16 11:39 98.1 86 16 101/77 99 Room Air 08/02/16 08:42 97.3 82 15 106/66 98 Room Air 08/02/16 04:00 96.6 70 20 92/70 95 Room Air 08/02/16 00:00 96.4 68 18 95/64 94 Room Air Intake and Output 08/01/16 08/02/16 19:00 07:00 Intake Total 480 ml 1280 ml Output Total 1300 ml 2100 ml Balance -820 ml -820 ml Intake Oral 480 ml 1280 ml Output Urine Total 1300 ml 2100 ml # Voids 3 6 # Bowel Movements 1 General Appearance: no acute distress HEENT: normocephalic, atraumatic, PERRL Respiratory/Chest: chest wall non-tender, decreased breath sounds, accessory muscle use Cardiovascular: normal peripheral pulses, normal rate, regular rhythm, no JVD Abdomen: normal bowel sounds, soft, non tender, no organomegaly, non distended Genitourinary: normal external genitalia Extremities: no cyanosis Skin: no lesions 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, 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 Current Medications Medications (Trade) Dose Ordered Sig/Nahomi Route PRN Reason Start Time Stop Time Status Last Admin Dose Admin Acetaminophen (Tylenol) 650 mg Q4H PRN ORAL fever 07/27/16 20:45 08/26/16 20:44 Al Hydroxide/Mg Hydroxide (Mylanta II) 30 ml Q6H PRN ORAL dyspepsia 07/27/16 20:45 08/26/16 20:44 Dextrose (Dextrose 50%) STAT PRN IV Hypoglycemia 07/27/16 20:45 08/26/16 20:44 Diazepam (Valium) 5 mg Q6H PRN ORAL For Anxiety 07/27/16 19:45 08/03/16 19:44 07/27/16 20:44 Diphenhydramine HCl (Benadryl) 25 mg EVERY 8 HOURS ORAL 07/27/16 22:00 08/26/16 21:59 08/02/16 21:46 Duloxetine HCl (Cymbalta) 60 mg DAILY ORAL 07/28/16 09:00 08/27/16 08:59 08/02/16 08:17 Gabapentin (Neurontin) 300 mg FOUR TIMES A DAY ORAL 07/27/16 21:00 08/26/16 20:59 08/02/16 21:45 Hydromorphone HCl (Dilaudid) 4 mg Q4H ORAL 07/27/16 20:45 08/03/16 20:44 08/02/16 21:46 Ibuprofen (Motrin) 800 mg BID ORAL 07/28/16 09:00 08/27/16 08:59 08/01/16 17:50 Lorazepam (Ativan 2mg/ml 1ml) 0.5 mg Q4H PRN IV For Anxiety 07/27/16 20:45 08/03/16 20:44 Lorazepam (Ativan) 0.5 mg EVERY 8 HOURS ORAL 07/27/16 22:00 08/03/16 21:59 08/02/16 22:25 Meclizine HCl (Antivert) 25 mg THREE TIMES A DAY ORAL 07/28/16 09:00 08/27/16 08:59 08/02/16 17:17 Methadone HCl (Methadone HCl) 5 mg BID ORAL 07/28/16 09:00 08/04/16 08:59 08/02/16 17:17 Mirtazapine (Remeron) 15 mg BEDTIME ORAL 07/31/16 21:00 08/30/16 20:59 08/02/16 21:46 Morphine Sulfate (Morphine Sulfate) 1 mg EVERY 4 HOURS PRN IVP For Pain 07/27/16 20:45 08/03/16 20:44 Ondansetron HCl (Zofran) 4 mg Q6H PRN IVP Nausea & Vomiting 07/27/16 20:45 08/26/16 20:44 Oxycodone/ Acetaminophen (Percocet 10/325) 1 tab Q4H PRN ORAL Severe Pain (Pain Scale 7-10) 07/27/16 19:45 08/03/16 19:44 07/27/16 20:45 Polyethylene Glycol (Miralax) 17 gm HSPRN PRN ORAL Constipation 07/27/16 20:45 08/26/16 20:44 Zolpidem Tartrate (Ambien) 5 mg HSPRN PRN ORAL Insomnia 07/27/16 20:45 08/26/16 20:44 JULISSA JACOBS Aug 02, 2016 23:27
[2016-08-03] VITALS: BP 93/62
[2016-08-03] MEDS: HYDROmorphone 4mg tab ORAL SCH ×6 (00:45→16:46)
[2016-08-03 04:00] VITALS: BP 94/69
[2016-08-03] MEDS: LORazepam 0.5mg tab ORAL SCH ×2 (06:00→14:26)
[2016-08-03 08:18] VITALS: BP 109/77
[2016-08-03] MEDS: Meclizine 25mg tab ORAL SCH ×3 (09:20→17:44)
[2016-08-03] MEDS: DULoxetine 30mg cap ORAL SCH (09:21)
[2016-08-03 12:35] VITALS: BP 112/79
[2016-08-03 16:24] VITALS: BP 120/83
[2016-08-03 19:00] VITALS: BP 99/76
--- NOTE | 2016-08-03 19:14 | Pulmonology Progress Note ---
Assessment/Plan Problems: (1) Chronic neck pain (2) Multiple injuries due to trauma (3) Neck pain (4) Cervical sprain (5) Malingering Assessment/Plan neuro evaluation pending pt/ot Subjective ROS Limited/Unobtainable: No Constitutional: Reports: anorexia, fatigue Neurologic: Reports: weakness Allergies: Coded Allergies: No Known Allergies (Unverified , 08/10/13) Objective Last 24 Hour Vital Signs Date Time Temp Pulse Resp B/P Pulse Ox O2 Delivery O2 Flow Rate FiO2 08/03/16 16:24 97.8 80 19 120/83 99 Room Air 08/03/16 12:35 97.8 91 19 112/79 96 Room Air 08/03/16 08:18 97.7 71 19 109/77 96 Room Air 08/03/16 04:00 97.0 68 18 94/69 93 Room Air 08/03/16 00:00 98.6 75 18 93/62 94 Room Air Intake and Output 08/02/16 08/03/16 19:00 07:00 Intake Total 2500 ml 320 ml Output Total 1200 ml 1850 ml Balance 1300 ml -1530 ml Intake Oral 2500 ml 320 ml Output Urine Total 1200 ml 1850 ml # Voids 4 General Appearance: no acute distress HEENT: normocephalic, atraumatic, PERRL Respiratory/Chest: chest wall non-tender, decreased breath sounds, accessory muscle use Cardiovascular: normal peripheral pulses, normal rate, regular rhythm Abdomen: normal bowel sounds, soft, non tender, no organomegaly Genitourinary: normal external genitalia Extremities: no cyanosis Skin: no rash, lesions 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, 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 deficits Current Medications Medications (Trade) Dose Ordered Sig/Nahomi Route PRN Reason Start Time Stop Time Status Last Admin Dose Admin Acetaminophen (Tylenol) 650 mg Q4H PRN ORAL fever 07/27/16 20:45 08/26/16 20:44 Al Hydroxide/Mg Hydroxide (Mylanta II) 30 ml Q6H PRN ORAL dyspepsia 07/27/16 20:45 08/26/16 20:44 Dextrose (Dextrose 50%) STAT PRN IV Hypoglycemia 07/27/16 20:45 08/26/16 20:44 Diazepam (Valium) 5 mg Q6H PRN ORAL For Anxiety 07/27/16 19:45 08/03/16 19:44 07/27/16 20:44 Diphenhydramine HCl (Benadryl) 25 mg EVERY 8 HOURS ORAL 07/27/16 22:00 08/26/16 21:59 08/03/16 14:26 Duloxetine HCl (Cymbalta) 60 mg DAILY ORAL 07/28/16 09:00 08/27/16 08:59 08/03/16 09:21 Gabapentin (Neurontin) 300 mg FOUR TIMES A DAY ORAL 07/27/16 21:00 08/26/16 20:59 08/03/16 17:43 Hydromorphone HCl (Dilaudid) 4 mg Q4H ORAL 07/27/16 20:45 08/03/16 20:44 08/03/16 16:46 Ibuprofen (Motrin) 800 mg BID ORAL 07/28/16 09:00 08/27/16 08:59 08/01/16 17:50 Lorazepam (Ativan 2mg/ml 1ml) 0.5 mg Q4H PRN IV For Anxiety 07/27/16 20:45 08/03/16 20:44 Lorazepam (Ativan) 0.5 mg EVERY 8 HOURS ORAL 07/27/16 22:00 08/03/16 21:59 08/03/16 14:26 Meclizine HCl (Antivert) 25 mg THREE TIMES A DAY ORAL 07/28/16 09:00 08/27/16 08:59 08/03/16 17:44 Methadone HCl (Methadone HCl) 5 mg BID ORAL 07/28/16 09:00 08/04/16 08:59 08/03/16 17:44 Mirtazapine (Remeron) 15 mg BEDTIME ORAL 07/31/16 21:00 08/30/16 20:59 08/02/16 21:46 Morphine Sulfate (Morphine Sulfate) 1 mg EVERY 4 HOURS PRN IVP For Pain 07/27/16 20:45 08/03/16 20:44 Ondansetron HCl (Zofran) 4 mg Q6H PRN IVP Nausea & Vomiting 07/27/16 20:45 08/26/16 20:44 Oxycodone/ Acetaminophen (Percocet 10/325) 1 tab Q4H PRN ORAL Severe Pain (Pain Scale 7-10) 07/27/16 19:45 08/03/16 19:44 07/27/16 20:45 Polyethylene Glycol (Miralax) 17 gm HSPRN PRN ORAL Constipation 07/27/16 20:45 08/26/16 20:44 Zolpidem Tartrate (Ambien) 5 mg HSPRN PRN ORAL Insomnia 07/27/16 20:45 08/26/16 20:44 JULISSA JACOBS Aug 03, 2016 19:14
[2016-08-04] VITALS: BP 105/77
[2016-08-04] MEDS: HYDROmorphone 4mg tab ORAL SCH ×6 (00:11→20:33)
[2016-08-04 04:00] VITALS: BP 114/75
[2016-08-04 07:55] VITALS: BP 117/80
[2016-08-04] MEDS: DULoxetine 30mg cap ORAL SCH (08:29)
[2016-08-04] MEDS: Meclizine 25mg tab ORAL SCH ×3 (08:29→18:00)
[2016-08-04 11:44] VITALS: BP 123/80
[2016-08-04 15:48] VITALS: BP 108/79
--- NOTE | 2016-08-04 19:55 | Pulmonology Progress Note ---
Assessment/Plan Problems: (1) Chronic neck pain (2) Multiple injuries due to trauma (3) Neck pain (4) Cervical sprain (5) Malingering Assessment/Plan neuro evaluation pending pt/ot Subjective ROS Limited/Unobtainable: No Constitutional: Reports: anorexia, fatigue Neurologic: Reports: weakness Psychiatric: Reports: anxiety, depression Musculoskeletal: Reports: pain, stiffness, swelling Allergies: Coded Allergies: No Known Allergies (Unverified , 08/10/13) Objective Last 24 Hour Vital Signs Date Time Temp Pulse Resp B/P Pulse Ox O2 Delivery O2 Flow Rate FiO2 08/04/16 15:48 97.9 96 20 108/79 99 Room Air 08/04/16 11:44 98.6 86 21 123/80 97 Room Air 08/04/16 07:55 97.7 85 21 117/80 99 Room Air 08/04/16 04:00 97.7 71 18 114/75 95 Room Air 08/04/16 00:00 97.7 74 18 105/77 96 Room Air Intake and Output 08/03/16 08/04/16 19:00 07:00 Intake Total 980 ml 1020 ml Output Total 1100 ml 1000 ml Balance -120 ml 20 ml Intake Oral 980 ml 1020 ml Output Urine Total 1100 ml 1000 ml # Voids 8 General Appearance: no acute distress HEENT: normocephalic, atraumatic, PERRL Respiratory/Chest: chest wall non-tender, decreased breath sounds, accessory muscle use Cardiovascular: normal peripheral pulses, normal rate, regular rhythm, no JVD Abdomen: normal bowel sounds, soft, non tender, no organomegaly, non distended Genitourinary: normal external genitalia Extremities: no cyanosis Skin: lesions 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, 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 deficits Current Medications Medications (Trade) Dose Ordered Sig/Nahomi Route PRN Reason Start Time Stop Time Status Last Admin Dose Admin Acetaminophen (Tylenol) 650 mg Q4H PRN ORAL fever 07/27/16 20:45 08/26/16 20:44 Al Hydroxide/Mg Hydroxide (Mylanta II) 30 ml Q6H PRN ORAL dyspepsia 07/27/16 20:45 08/26/16 20:44 Dextrose (Dextrose 50%) STAT PRN IV Hypoglycemia 07/27/16 20:45 08/26/16 20:44 Diphenhydramine HCl (Benadryl) 25 mg EVERY 8 HOURS ORAL 07/27/16 22:00 08/26/16 21:59 08/04/16 15:00 Duloxetine HCl (Cymbalta) 60 mg DAILY ORAL 07/28/16 09:00 08/27/16 08:59 08/04/16 08:29 Gabapentin (Neurontin) 300 mg FOUR TIMES A DAY ORAL 07/27/16 21:00 08/26/16 20:59 08/04/16 19:05 Hydromorphone HCl (Dilaudid) 4 mg Q4H ORAL 08/04/16 00:00 08/11/16 00:00 08/04/16 17:13 Ibuprofen (Motrin) 800 mg BID ORAL 07/28/16 09:00 08/27/16 08:59 08/01/16 17:50 Meclizine HCl (Antivert) 25 mg THREE TIMES A DAY ORAL 07/28/16 09:00 08/27/16 08:59 08/04/16 13:29 Methadone HCl (Methadone HCl) 5 mg BID ORAL 08/04/16 09:00 08/11/16 08:59 08/04/16 18:00 Mirtazapine (Remeron) 15 mg BEDTIME ORAL 07/31/16 21:00 08/30/16 20:59 08/03/16 21:37 Ondansetron HCl (Zofran) 4 mg Q6H PRN IVP Nausea & Vomiting 07/27/16 20:45 08/26/16 20:44 Polyethylene Glycol (Miralax) 17 gm HSPRN PRN ORAL Constipation 07/27/16 20:45 08/26/16 20:44 Zolpidem Tartrate (Ambien) 5 mg HSPRN PRN ORAL Insomnia 07/27/16 20:45 08/26/16 20:44 JULISSA JACOBS Aug 04, 2016 19:55
[2016-08-04 20:00] VITALS: BP 108/69
[2016-08-05] VITALS: BP 99/71
[2016-08-05] MEDS: HYDROmorphone 4mg tab ORAL SCH ×6 (00:17→20:33)
[2016-08-05 04:00] VITALS: BP 96/73
[2016-08-05 08:00] VITALS: BP 100/70
[2016-08-05] MEDS: Meclizine 25mg tab ORAL SCH ×3 (09:04→18:00)
[2016-08-05] MEDS: DULoxetine 30mg cap ORAL SCH (09:11)
[2016-08-05 12:00] VITALS: BP 149/95
[2016-08-05 16:00] VITALS: BP 120/93
[2016-08-05 20:00] VITALS: BP 116/76
--- NOTE | 2016-08-05 22:28 | Pulmonology Progress Note ---
Assessment/Plan Problems: (1) Chronic neck pain (2) Multiple injuries due to trauma (3) Neck pain (4) Cervical sprain (5) Malingering Assessment/Plan neuro evaluation pt/ot eating well d/c planning social media marketing specialist Subjective ROS Limited/Unobtainable: No Allergies: Coded Allergies: No Known Allergies (Unverified , 08/10/13) Objective Last 24 Hour Vital Signs Date Time Temp Pulse Resp B/P Pulse Ox O2 Delivery O2 Flow Rate FiO2 08/05/16 20:00 98.2 95 20 116/76 95 Room Air 08/05/16 17:21 98.1 08/05/16 16:00 98.4 91 18 120/93 97 Room Air 08/05/16 12:00 98.1 94 18 149/95 97 Room Air 08/05/16 08:00 97.4 72 19 100/70 98 Room Air 08/05/16 04:00 97.2 71 20 96/73 98 Room Air 08/05/16 00:00 98.1 74 20 99/71 93 Room Air Intake and Output 08/04/16 08/05/16 19:00 07:00 Intake Total 720 ml 1100 ml Output Total 1200 ml 1700 ml Balance -480 ml -600 ml Intake Oral 720 ml 1100 ml Output Urine Total 1200 ml 1700 ml # Voids 3 2 Objective Lines, tubes and drains: peripheral, HEENT: normocephalic, atraumatic Neck: non-tender Respiratory/Chest: chest wall non-tender Cardiovascular/Chest: normal peripheral pulses Abdomen: normal bowel sounds, feeding tube, other Genitourinary/Rectal: normal genital exam Extremities: normal range of motion, non-tender Current Medications Medications (Trade) Dose Ordered Sig/Nahomi Route PRN Reason Start Time Stop Time Status Last Admin Dose Admin Acetaminophen (Tylenol) 650 mg Q4H PRN ORAL fever 07/27/16 20:45 08/26/16 20:44 Al Hydroxide/Mg Hydroxide (Mylanta II) 30 ml Q6H PRN ORAL dyspepsia 07/27/16 20:45 08/26/16 20:44 Dextrose (Dextrose 50%) STAT PRN IV Hypoglycemia 07/27/16 20:45 08/26/16 20:44 Diphenhydramine HCl (Benadryl) 25 mg EVERY 8 HOURS ORAL 07/27/16 22:00 08/26/16 21:59 08/05/16 22:15 Duloxetine HCl (Cymbalta) 60 mg DAILY ORAL 07/28/16 09:00 08/27/16 08:59 08/05/16 09:11 Gabapentin (Neurontin) 300 mg FOUR TIMES A DAY ORAL 07/27/16 21:00 08/26/16 20:59 08/05/16 20:32 Hydromorphone HCl (Dilaudid) 4 mg Q4H ORAL 08/04/16 00:00 08/11/16 00:00 08/05/16 20:33 Ibuprofen (Motrin) 800 mg BID ORAL 07/28/16 09:00 08/27/16 08:59 08/01/16 17:50 Meclizine HCl (Antivert) 25 mg THREE TIMES A DAY ORAL 07/28/16 09:00 08/27/16 08:59 08/05/16 13:28 Methadone HCl (Methadone HCl) 5 mg BID ORAL 08/04/16 09:00 08/11/16 08:59 08/05/16 16:23 Mirtazapine (Remeron) 15 mg BEDTIME ORAL 07/31/16 21:00 08/30/16 20:59 08/05/16 20:32 Ondansetron HCl (Zofran) 4 mg Q6H PRN IVP Nausea & Vomiting 07/27/16 20:45 08/26/16 20:44 Polyethylene Glycol (Miralax) 17 gm HSPRN PRN ORAL Constipation 07/27/16 20:45 08/26/16 20:44 Zolpidem Tartrate (Ambien) 5 mg HSPRN PRN ORAL Insomnia 07/27/16 20:45 08/26/16 20:44 JULISSA JACOBS Aug 05, 2016 22:28
[2016-08-06] VITALS: BP 105/72
[2016-08-06] MEDS: HYDROmorphone 4mg tab ORAL SCH ×7 (00:04→23:32)
[2016-08-06 03:52] VITALS: BP 98/69
[2016-08-06 07:37] VITALS: BP 114/85
[2016-08-06] MEDS: DULoxetine 30mg cap ORAL SCH (08:13)
[2016-08-06] MEDS: Meclizine 25mg tab ORAL SCH ×3 (08:14→18:34)
[2016-08-06 11:29] VITALS: BP 112/67
--- NOTE | 2016-08-06 15:27 | Pulmonology Progress Note ---
Assessment/Plan Problems: (1) Chronic neck pain (2) Multiple injuries due to trauma (3) Neck pain (4) Cervical sprain (5) Malingering Assessment/Plan neuro evaluation pt/ot eating well d/c planning social services specialist Subjective Interval Events: comfortable Allergies: Coded Allergies: No Known Allergies (Unverified , 08/10/13) Objective Last 24 Hour Vital Signs Date Time Temp Pulse Resp B/P Pulse Ox O2 Delivery O2 Flow Rate FiO2 08/06/16 13:11 98.2 08/06/16 11:29 98.2 91 19 112/67 96 Room Air 08/06/16 07:37 97.0 75 20 114/85 97 Room Air 08/06/16 03:52 97.3 67 20 98/69 92 Room Air 08/06/16 00:00 97.0 82 18 105/72 96 Room Air 08/05/16 20:00 98.2 95 20 116/76 95 Room Air 08/05/16 16:00 98.4 91 18 120/93 97 Room Air Intake and Output 08/05/16 08/06/16 19:00 07:00 Intake Total 720 ml 1200 ml Output Total 750 ml 1470 ml Balance -30 ml -270 ml Intake Oral 720 ml 1200 ml Output Urine Total 750 ml 1470 ml # Voids 4 Objective Lines, tubes and drains: peripheral, HEENT: normocephalic, atraumatic Neck: non-tender Respiratory/Chest: chest wall non-tender Cardiovascular/Chest: normal peripheral pulses Abdomen: normal bowel sounds, feeding tube, other Genitourinary/Rectal: normal genital exam Extremities: normal range of motion, non-tender Current Medications Medications (Trade) Dose Ordered Sig/Nahomi Route PRN Reason Start Time Stop Time Status Last Admin Dose Admin Acetaminophen (Tylenol) 650 mg Q4H PRN ORAL fever 07/27/16 20:45 08/26/16 20:44 Al Hydroxide/Mg Hydroxide (Mylanta II) 30 ml Q6H PRN ORAL dyspepsia 07/27/16 20:45 08/26/16 20:44 Dextrose (Dextrose 50%) STAT PRN IV Hypoglycemia 07/27/16 20:45 08/26/16 20:44 Diphenhydramine HCl (Benadryl) 25 mg EVERY 8 HOURS ORAL 07/27/16 22:00 08/26/16 21:59 08/06/16 13:50 Duloxetine HCl (Cymbalta) 60 mg DAILY ORAL 07/28/16 09:00 08/27/16 08:59 08/06/16 08:13 Gabapentin (Neurontin) 300 mg FOUR TIMES A DAY ORAL 07/27/16 21:00 08/26/16 20:59 08/06/16 12:12 Hydromorphone HCl (Dilaudid) 4 mg Q4H ORAL 08/04/16 00:00 08/11/16 00:00 08/06/16 12:12 Ibuprofen (Motrin) 800 mg BID ORAL 07/28/16 09:00 08/27/16 08:59 08/01/16 17:50 Meclizine HCl (Antivert) 25 mg THREE TIMES A DAY ORAL 07/28/16 09:00 08/27/16 08:59 08/06/16 12:12 Methadone HCl (Methadone HCl) 5 mg BID ORAL 08/04/16 09:00 08/11/16 08:59 08/06/16 08:18 Mirtazapine (Remeron) 15 mg BEDTIME ORAL 07/31/16 21:00 08/30/16 20:59 08/05/16 20:32 Ondansetron HCl (Zofran) 4 mg Q6H PRN IVP Nausea & Vomiting 07/27/16 20:45 08/26/16 20:44 Polyethylene Glycol (Miralax) 17 gm HSPRN PRN ORAL Constipation 07/27/16 20:45 08/26/16 20:44 Zolpidem Tartrate (Ambien) 5 mg HSPRN PRN ORAL Insomnia 07/27/16 20:45 08/26/16 20:44 JULISSA JACOBS Aug 06, 2016 15:27
[2016-08-06 15:50] VITALS: BP 124/86
[2016-08-06 19:00] VITALS: BP 129/75
[2016-08-07] VITALS: BP 126/68
[2016-08-07 04:00] VITALS: BP 120/65
[2016-08-07] MEDS: HYDROmorphone 4mg tab ORAL SCH ×3 (04:00→12:20)
[2016-08-07 08:01] VITALS: BP 119/76
[2016-08-07] MEDS: DULoxetine 30mg cap ORAL SCH (08:20)
[2016-08-07] MEDS: Meclizine 25mg tab ORAL SCH ×2 (08:22→12:21)
[2016-08-07] MEDS ORDERED: ACETAMINOPHEN325 M1 ORAL (11:18)
[2016-08-07] MEDS ORDERED: MIRALAX17 G2 ORAL (11:19)
[2016-08-07] MEDS ORDERED: AMBIEN5 MG ORAL (11:20)
[2016-08-07] MEDS ORDERED: MYLANTA30 M1 ORAL (11:21)
[2016-08-07 11:50] VITALS: BP 124/84
--- NOTE | 2016-08-07 15:16 | Pulmonology Progress Note ---
Assessment/Plan Problems: (1) Chronic neck pain (2) Multiple injuries due to trauma (3) Neck pain (4) Cervical sprain (5) Malingering Assessment/Plan neuro evaluation pt/ot eating well d/c planning social problems specialist [place] to [facility] Subjective ROS Limited/Unobtainable: No Constitutional: Reports: no symptoms HEENT: Repors: no symptoms Allergies: Coded Allergies: No Known Allergies (Unverified , 08/10/13) Objective Last 24 Hour Vital Signs Date Time Temp Pulse Resp B/P Pulse Ox O2 Delivery O2 Flow Rate FiO2 08/07/16 13:19 97.0 08/07/16 11:50 97.0 74 15 124/84 95 Room Air 08/07/16 09:20 97.7 08/07/16 08:01 97.7 84 15 119/76 96 Room Air 08/07/16 04:00 97.7 91 18 120/65 98 Room Air 08/07/16 00:00 98.0 94 20 126/68 Room Air 08/06/16 19:00 97.7 98 20 129/75 96 Room Air 08/06/16 15:50 98.1 97 20 124/86 97 Room Air Intake and Output 08/06/16 08/07/16 19:00 07:00 Intake Total 1170 ml Output Total 1350 ml 875 ml Balance -180 ml -875 ml Intake Oral 1170 ml Output Urine Total 1350 ml 875 ml Objective Lines, tubes and drains: peripheral, HEENT: normocephalic, atraumatic Neck: non-tender Respiratory/Chest: chest wall non-tender Cardiovascular/Chest: normal peripheral pulses Abdomen: normal bowel sounds, feeding tube, other Genitourinary/Rectal: normal genital exam Extremities: normal range of motion, non-tender JULISSA JACOBS Aug 07, 2016 15:15
--- NOTE | 2016-08-08 14:14 | Discharge Summary ---
Discharge Summary Hospital Course Date of Admission Jul 27, 2016 at 17:03 Date of Discharge Aug 07, 2016 at 13:45 Admitting Diagnosis Failure to Thrive HPI Kian Dan is a 55 year old male who was admitted on Jul 27, 2016 at 17:03 for Failure To Thrice Hospital Course job #[id number] Discharge Discharge Disposition Patient was discharged to SNF/Subacute Facility(03) Discharge Diagnoses: Amanda Jacobs NP Aug 08, 2016 14:14
--- NOTE | 2016-08-08 23:48 | Discharge Summary 2 SIG ---
DATE OF ADMISSION: 07/27/2016 DATE OF DISCHARGE: 08/07/2016 CONSULTANTS: 1. Audelia Thornton M.D. 2. Dayron Schroeder M.D. BRIEF HOSPITAL COURSE: The patient is a 55-year-old male with chronic back pain, who is from long-term, was brought here for generalized weakness and one to two days of dizziness that was worst during change in position. He has history of lumbar spine and thoracic spine sprain, degenerative joint disease, and previous neck and shoulder fracture. The patient presented with increased weakness and unable to ambulate. EKG showed some abnormalities. Dr. Schroeder was consulted. On examination, the patient had normal muscle tone. Strength is 1/5 in both lower extremities and 5/5 in right upper extremity with antalgic left arm. Sensory examination was normal to pin stimulation in both upper and lower extremity. No sensory level noted. An MRI done was negative for acute intracranial bleed, mass effect, infarct or contrast enhancing lesion. X-ray of the cervical spine showed no definite acute bony trauma with degenerative changes. Shoulder x-ray showed no acute process. He was seen by Dr. Thornton for complaints of anxiety and insomnia. On evaluation, appeared to be bizarre and was focused on looking on his computer. He was diagnosed with major depressive disorder and was continued on Cymbalta 60 mg. Remeron was increased to 15 mg nightly. corporate event planner/ family independence case manager and social media senior associate was called in to aid in the patient's discharge as the patient does not want to return to prior long-term. He was referred to several facilities and was eventually accepted at [facility]. He was discharged to SNF. FINAL DIAGNOSES: 1. Cervical sprain. 2. Neck pain. 3. Malingering. 4. Multiple injuries due to trauma. 5. Neck pain. 6. Major depressive disorder. 7. Probable benign positional vertigo. 8. Chronic pain syndrome. 9. Anxiety and depression. 10. Cervical radiculopathy. Haris Lopez M.D. I have been assigned to dictate discharge summary on this account and I was not involved in the patient's management. Amanda Jacobs N.P. DR: JONO JOB#: [id number] CC: FRANCISCO
== END 2016-08-07 13:45 | DRG 552 ==
LOC: EDBD 11:07 → EMR 12:27 → EDBEDREQ 16:46 → 4W 17:03 → 4E 17:52
DX: S13.4XXA Sprain of ligaments of cervical spine, initial encounter (principal); F11.20 Opioid dependence, uncomplicated; S12.001 Unspecified nondisplaced fracture of first cervical vertebra; M54.12 Radiculopathy, cervical region; M50.30 Other cervical disc degeneration, unspecified cervical region; Z76.5 Malingerer [conscious simulation]; M48.02 Spinal stenosis, cervical region; F41.9 Anxiety disorder, unspecified; F32.9 Major depressive disorder, single episode, unspecified; G47.00 Insomnia, unspecified; H81.10 Benign paroxysmal vertigo, unspecified ear; G89.4 Chronic pain syndrome; H55.00 Unspecified nystagmus; W18.39XA Other fall on same level, initial encounter; Y92.9 Unspecified place or not applicable; Y99.8 Other external cause status
CPT/HCPCS: 36415; 70553; 72050; 80053; 80061; 80300; 81003; 83690; 84443; 84484; 85025; 85610; 85730; 87081; 93005; 93970; A9585

== ENCOUNTER 2017-06-09 10:10 | Inpatient (IN) | payer MEDICARE, MEDICAID ==
[~2017-06-09] VITALS: Ht 177.8 cm; Wt 102.1 kg
[~2017-06-09 10:10] MED LIST changes: +ACETAMINOPHEN325 M1 ORAL; +AMBIEN5 MG ORAL; +ATIVAN0.5 MG ORAL; +MECLIZINE HCL25 MG ORAL; +MIRALAX17 G2 ORAL; +MYLANTA30 M1 ORAL
[2017-06-09 10:25] VITALS: BP 152/109
[2017-06-09] MEDS ORDERED: LORATADINE10 M3 PO (11:20)
[2017-06-09] MEDS ORDERED: VALIUM2 MG ORAL (11:20)
[2017-06-09 11:22] LABS: ANION GAP 9 mmol/L (5-15); BLOOD UREA NITROGEN 9 mg/dL (7-18); CARBON DIOXIDE 28 MMOL/L (21-32); CHLORIDE 102 MMOL/L (98-107); CREATININE 0.9 MG/DL (0.55-1.30); POTASSIUM 3.3 MMOL/L (3.5-5.1); SODIUM 139 MMOL/L (136-145)
[2017-06-09 11:24] LABS: EOSINOPHILS % (AUTO) 0.4 % (0.0-3.0); HEMATOCRIT 42.6 % (42.0-52.0); HEMOGLOBIN 15.3 G/DL (14.2-18.0); MEAN CORPUSCULAR VOLUME 88 FL (80-99); MONOCYTES % (AUTO) 8.7 % (1.0-10.0); NEUTROPHILS % (AUTO) 79.9 % (45.0-75.0); PLATELET COUNT 261 K/UL (150-450); RED BLOOD COUNT 4.85 M/UL (4.70-6.10); WHITE BLOOD COUNT 8.1 K/UL (4.8-10.8)
[2017-06-09 11:32] LABS: ALANINE AMINOTRANSFERASE 33 U/L (12-78); ALBUMIN 3.4 G/DL (3.4-5.0); ALBUMIN/GLOBULIN RATIO 0.8 (1.0-2.7); ALKALINE PHOSPHATASE 111 U/L (46-116); ASPARTATE AMINO TRANSFERASE 24 U/L (15-37); BILIRUBIN,TOTAL 0.2 MG/DL (0.2-1.0)
[2017-06-09 11:35] LABS: APPEARANCE,URINE CLEAR; BILIRUBIN, URINE NEGATIVE (NEGATIVE); COLOR,URINE PALE YELLOW; GLUCOSE, URINE (UA) NEGATIVE (NEGATIVE); KETONES,URINE NEGATIVE (NEGATIVE); LEUKOCYTE ESTERASE ,URINE NEGATIVE (NEGATIVE); NITRITE,URINE NEGATIVE (NEGATIVE); PH,URINE 6.5 (4.5-8.0); PROTEIN,URINE NEGATIVE (NEGATIVE); UROBILINOGEN,URINE NORMAL MG/DL (0.0-1.0)
--- NOTE | 2017-06-09 11:40 | Diagnostic Imaging Report ---
Indication: Dyspnea Comparison: None A single view chest radiograph was obtained. Findings: Aorta is ectatic. Heart size is normal. Lungs are clear. There are old rib fractures on the left and old left clavicle fracture. Bones are osteopenic. IMPRESSION: No acute disease identified
--- NOTE | 2017-06-09 12:32 | Emergency Room Report ---
History of Present Illness General Chief Complaint: Chest Pain Source: Patient Present Illness HPI 56-year-old male p/w chest pain for one day. Chest pain started while sleeping. Localized to substernal area, no radiation to back or other areas, sharp in nature, gradual in onset, lasted several hours and slowly subsided upon coming to the emergency room. +SOB. Denies palpitations, diaphoresis, n/v. Denies fever, chills, cough, abd pain. Denies trauma. Unknown last stress test Denies smoking, no family history of cardiac disease at a young age. States that he has chronic pain in his neck and shoulders for a fracture, he takes Dilaudid and other pain medication only when needed Allergies: Coded Allergies: No Known Allergies (Unverified , 08/10/13) Patient History Past Medical History: see triage record Past Surgical History: none Pertinent Family History: none Reviewed Nursing Documentation: PMH: Agreed, PSxH: Agreed Nursing Documentation-PMH Hx Hypertension: No Hx Asthma: No Hx COPD: No Hx Diabetes: No Hx Cancer: No Hx Gastrointestinal Problems: No History Of Psychiatric Problem: Yes - Anxiet Disorder; Opioid Dependence Hx Neurological Problems: No - Neck & shoulder Fracture 08/11/2014 Hx Seizures: Yes Review of Systems All Other Systems: negative except mentioned in HPI Physical Exam Vital Signs Date Time Temp Pulse Resp B/P (MAP) Pulse Ox O2 Delivery O2 Flow Rate FiO2 06/09/17 10:13 Room Air 06/09/17 10:25 99.1 108 28 152/109 97 99.1 Sp02 EP Interpretation: reviewed, normal General Appearance: alert, GCS 15, non-toxic, mild distress Head: normocephalic, atraumatic Eyes: bilateral eye normal inspection, bilateral eye PERRL, bilateral eye EOMI ENT: normal ENT inspection, normal pharynx, normal voice, moist mucus membranes Neck: normal inspection, full range of motion, supple Respiratory: normal inspection, lungs clear, normal breath sounds, no respiratory distress, no retraction, no wheezing, speaking full sentences, chest symmetrical Cardiovascular #1: normal inspection, regular rate, rhythm, no edema, normal capillary refill Cardiovascular #2: 2+ radial (R), 2+ radial (L) Gastrointestinal: normal inspection, non tender, soft, non-distended, no guarding Genitourinary: no CVA tenderness Musculoskeletal: normal inspection, back normal, normal range of motion, non- tender Neurologic: normal inspection, alert, oriented x3, responsive, motor strength/ tone normal, sensory intact, normal gait, speech normal Psychiatric: normal inspection, judgement/insight normal, memory normal Skin: normal inspection, normal color, no rash, warm/dry, well hydrated, normal turgor Medical Decision Making Diagnostic Impression: Primary Impression: ACS (acute coronary syndrome) ER Course 56-year-old male p/w CP DDX: ACS vs. CHF vs. pneumonia vs. gastritis/GERD vs. pneumothorax PE on differential however at this time there are other more likely diagnoses. Plan: IV access, obtain labs including troponin, EKG, CXR ASA, pain control with nitro / morphine Anticipate admission ER course: Patient was treated with ASA. Patient has remained on a monitor, HD stable Disposition: Patient requires admission for chest pain. Due to patient's history and comorbidities, patient has increased risk of acute cardiac event. Patient requires admission for further workup, serial troponin Patient was signed out to Dr Lopez, who has accepted patient for admission. Please note that this Emergency Department Report was dictated using Purchasing Platformshredding specialist technology software, occasionally this can lead to erroneous entry secondary to interpretation by the dictation equipment. EKG Diagnostic Results EP Interpretation: Yes Rate: Tachycardic Rhythm: NSR ST Segments: No acute changes ASA given to patient: Yes Rhythm Strip EP Interpretation: Yes Rate: 70 Rhythm: NSR, no PVCs, no ectopy Chest X-ray CXR: Ordered: Yes 1 view Indication: Chest pain EP interpretation: Yes Interpretation: No consolidation, no effusion, no PTX, no acute cardiopulmonary disease Impression: No acute disease Electronically signed by Shelbie Bauer MD Last Vital Signs Date Time Temp Pulse Resp B/P (MAP) Pulse Ox O2 Delivery O2 Flow Rate FiO2 06/09/17 10:58 99.1 108 28 152/109 97 Room Air 99.1 Disposition: ADMITTED INPATIENT Condition: Serious Referrals: JULISSA LOPEZ (PCP) Shelbie Bauer M.D. Jun 09, 2017 12:32
[2017-06-09 13:00] VITALS: BP 145/95
[2017-06-09] MEDS ORDERED: Albuterol/Ipratropium 3ml neb HHN PRN (15:45)
[2017-06-09] MEDS ORDERED: Morphine Sulfate 2mg/ml Inj IVP PRN (15:45)
[2017-06-09] MEDS ORDERED: Miralax 17gm pkt ORAL PRN (15:45)
[2017-06-09] MEDS ORDERED: Nitroglycerin Subl 0.4mg tab SL PRN (15:45)
[2017-06-09] MEDS ORDERED: Enalaprilat 2.5mg/2ml Inj IV PRN (15:45)
[2017-06-09] MEDS ORDERED: dilTIAZem HCl 25mg/5ml Inj IV PRN (15:45)
[2017-06-09] MEDS ORDERED: Ketorolac 30mg Inj IV PRN (15:45)
[2017-06-09] MEDS: HYDROmorphone 4mg tab ORAL SCH ×2 (17:30→21:07)
[2017-06-09] MEDS: Meclizine 25mg tab ORAL SCH (17:30)
--- NOTE | 2017-06-09 17:34 | History and Physical ---
History of Present Illness General Date patient seen: Jun 09, 2017 Reason for Hospitalization: Chest Pain Present Illness HPI 56-year-old male p/w chest pain for one day. Chest pain started while sleeping. Localized to substernal area, no radiation to back or other areas, sharp in nature, gradual in onset, lasted several hours and slowly subsided upon coming to the emergency room. +SOB. Denies palpitations, diaphoresis, n/v. Denies fever, chills, cough, abd pain. He is admitted to telemetry for further evaluation. Allergies: Coded Allergies: No Known Allergies (Unverified , 08/10/13) Medication History Scheduled Al Hydroxide/mg Hydroxide (Mag-Al Liquid), 30 ML ORAL Q6HR, (Reported) Atorvastatin Calcium* (Lipitor*), 10 MG ORAL BEDTIME Docusate Sodium* (Docusate Sodium*), 100 MG ORAL TWICE A DAY, (Reported) Duloxetine Hcl* (Cymbalta*), 60 MG ORAL DAILY Gabapentin (Neurontin), 300 MG ORAL FOUR TIMES A DAY, (Reported) Methadone Hcl* (Methadone*), 5 MG PO BID, (Reported) Mirtazapine* (Remeron*), 7.5 MG ORAL BEDTIME Multivitamin (Multi Vitamin Daily), 1 TAB ORAL DAILY, (Reported) Polyethylene Glycol 3350* (Miralax*), 17 GM ORAL HS, (Reported) Sennosides* (Senno*), 2 TAB ORAL BEDTIME, (Reported) Temazepam* (Restoril*), 7.5 MG ORAL BEDTIME, (Reported) Scheduled PRN Acetaminophen* (Acetaminophen 325MG Tablet*), 650 MG ORAL Q4H PRN for Fever/ Headache/Mild Pain, (Reported) Docusate Sodium (Dulcolax Stool Softener), 100 MG PO BID PRN for Constipation, ( Reported) Patient History Healthcare decision maker Resuscitation status Full Code Advanced Directive on File No Past Medical/Surgical History Past Medical/Surgical History: (1) Syncope (2) Lumbago (3) Cervicalgia (4) Chest wall pain (5) Rib fracture (6) Thoracic sprain (7) Lumbar sprain (8) Multiple injuries due to trauma (9) Vertigo (10) Failure to thrive (11) Malingering (12) Neck pain (13) Chronic neck pain (14) Cervical sprain (15) Multiple injuries due to trauma (16) Neck pain Review of Systems Constitutional: Reports: malaise, weakness Respiratory: Reports: cough Cardiovascular: Reports: chest pain Physical Exam General Appearance: no apparent distress Lines, tubes and drains: peripheral HEENT: normocephalic, atraumatic, anicteric, PERRL Neck: non-tender, normal alignment, supple, normal inspection Respiratory/Chest: chest wall non-tender, lungs clear, normal breath sounds, no respiratory distress Breasts: no masses Cardiovascular/Chest: normal peripheral pulses, normal rate, regular rhythm, no JVD Abdomen: normal bowel sounds, non tender, soft, no organomegaly Genitourinary/Rectal: normal genital exam, normal rectal exam Extremities: normal range of motion, non-tender, normal inspection, no calf tenderness Skin Exam: normal pigmentation, warm/dry Neurologic: bridge painter helper II-XII grossly normal, 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 deficits Last 24 Hour Vital Signs Date Time Temp Pulse Resp B/P (MAP) Pulse Ox O2 Delivery O2 Flow Rate FiO2 06/09/17 17:30 98.8 06/09/17 13:00 98.8 84 20 145/95 95 Room Air 06/09/17 12:46 99.1 28 152/109 97 Room Air 99.1 06/09/17 10:58 99.1 108 28 152/109 97 Room Air 99.1 06/09/17 10:25 108 28 Room Air 06/09/17 10:25 99.1 108 28 152/109 97 Room Air 99.1 06/09/17 10:13 Room Air Laboratory Tests Test 06/09/17 10:57 06/09/17 11:13 06/09/17 16:15 White Blood Count 8.1 K/UL (4.8-10.8) Red Blood Count 4.85 M/UL (4.70-6.10) Hemoglobin 15.3 G/DL (14.2-18.0) Hematocrit 42.6 % (42.0-52.0) Mean Corpuscular Volume 88 FL (80-99) Mean Corpuscular Hemoglobin 31.5 PG (27.0-31.0) H Mean Corpuscular Hemoglobin Concent 35.9 G/DL (32.0-36.0) Red Cell Distribution Width 11.0 % (11.6-14.8) L Platelet Count 261 K/UL (150-450) Mean Platelet Volume 9.6 FL (6.5-10.1) Neutrophils (%) (Auto) 79.9 % (45.0-75.0) H Lymphocytes (%) (Auto) 10.0 % (20.0-45.0) L Monocytes (%) (Auto) 8.7 % (1.0-10.0) Eosinophils (%) (Auto) 0.4 % (0.0-3.0) Basophils (%) (Auto) 1.0 % (0.0-2.0) Sodium Level 139 MMOL/L (136-145) Potassium Level 3.3 MMOL/L (3.5-5.1) L Chloride Level 102 MMOL/L (98-107) Carbon Dioxide Level 28 MMOL/L (21-32) Anion Gap 9 mmol/L (5-15) Blood Urea Nitrogen 9 mg/dL (7-18) Creatinine 0.9 MG/DL (0.55-1.30) Estimat Glomerular Filtration Rate > 60 mL/min (>60) Glucose Level 118 MG/DL (74-106) H Calcium Level 9.0 MG/DL (8.5-10.1) Total Bilirubin 0.2 MG/DL (0.2-1.0) Aspartate Amino Transf (AST/SGOT) 24 U/L (15-37) Alanine Aminotransferase (ALT/SGPT) 33 U/L (12-78) Alkaline Phosphatase 111 U/L (46-116) Troponin I 0.000 ng/mL (0.000-0.056) 0.000 ng/mL (0.000-0.056) Pro-B-Type Natriuretic Peptide 74 pg/mL (0-125) Total Protein 7.5 G/DL (6.4-8.2) Albumin 3.4 G/DL (3.4-5.0) Globulin 4.1 g/dL Albumin/Globulin Ratio 0.8 (1.0-2.7) L Urine Color Pale yellow Urine Appearance Clear Urine pH 6.5 (4.5-8.0) Urine Specific [place] 1.010 (1.005-1.035) Urine Protein Negative (NEGATIVE) Urine Glucose (UA) Negative (NEGATIVE) Urine Ketones Negative (NEGATIVE) Urine Occult Blood Negative (NEGATIVE) Urine Nitrite Negative (NEGATIVE) Urine Bilirubin Negative (NEGATIVE) Urine Urobilinogen Normal MG/DL (0.0-1.0) Urine Leukocyte Esterase Negative (NEGATIVE) Height (Feet): 5 Height (Inches): 10.00 Weight (Pounds): 225 Medications Current Medications Medications (Trade) Dose Ordered Sig/Nahomi Route PRN Reason Start Time Stop Time Status Last Admin Dose Admin Acetaminophen (Tylenol) 650 mg Q4H PRN ORAL Fever/Headache/Mild Pain 06/09/17 15:45 07/09/17 15:44 Albuterol/ Ipratropium (Albuterol/ Ipratropium) 3 ml EVERY 4 HOURS PRN HHN Shortness of Breath 06/09/17 15:45 06/14/17 15:44 Aspirin (ASA) 162 mg DAILY ORAL 06/10/17 09:00 07/10/17 08:59 Diazepam (Valium) 2.5 mg DAILY PRN ORAL ANXIETY 06/09/17 15:45 06/16/17 15:44 Diltiazem HCl (Cardizem) 10 mg EVERY HOUR PRN IV heart rate more than 120, 06/09/17 15:45 07/09/17 15:44 Duloxetine HCl (Cymbalta) 60 mg DAILY ORAL 06/10/17 09:00 07/10/17 08:59 Enalaprilat (Vasotec) 2.5 mg EVERY 6 HOURS PRN IV sbp more than 160 06/09/17 15:45 07/09/17 15:44 Gabapentin (Neurontin) 300 mg FOUR TIMES A DAY ORAL 06/09/17 18:00 07/09/17 17:59 06/09/17 17:30 Heparin Sodium (Porcine) (Heparin 5000 units/ml) 5,000 units EVERY 12 HOURS SUBQ 06/09/17 21:00 07/09/17 20:59 Hydromorphone HCl (Dilaudid) 4 mg Q4HR ORAL 06/09/17 17:00 06/16/17 16:59 06/09/17 17:30 Ketorolac Tromethamine (Toradol 30mg) 30 mg Q6HR PRN IV moderate pain ( 4-6) 06/09/17 15:45 06/14/17 15:44 Meclizine HCl (Antivert) 25 mg THREE TIMES A DAY ORAL 06/09/17 18:00 07/09/17 17:59 06/09/17 17:30 Methadone HCl (Methadone HCl) 5 mg Q12HR ORAL 06/09/17 21:00 06/16/17 20:59 Morphine Sulfate (Morphine Sulfate) 2 mg EVERY 4 HOURS PRN IVP severe Pain (Pain Scale 7-10) 06/09/17 15:45 06/16/17 15:44 Nitroglycerin (Ntg) 0.4 mg Every 5 Minutes PRN SL Prn Chest Pain 06/09/17 15:45 07/09/17 15:44 Ondansetron HCl (Zofran) 4 mg Q6H PRN IVP Nausea & Vomiting 06/09/17 15:45 07/09/17 15:44 Polyethylene Glycol (Miralax) 17 gm DAILYPRN PRN ORAL Constipation 06/09/17 15:45 07/09/17 15:44 Temazepam (Restoril) 15 mg HSPRN PRN ORAL Insomnia 06/09/17 15:45 06/16/17 15:44 Assessment/Plan Problem List: (1) ACS (acute coronary syndrome) ICD Codes: I24.9 - Acute ischemic heart disease, unspecified SNOMED: 948549552 (2) Cervical sprain ICD Codes: S13.9XXA - Sprain of joints and ligaments of unspecified parts of neck, initial encounter SNOMED: 806347661 (3) Multiple injuries due to trauma ICD Codes: T07 - Multiple injuries due to trauma SNOMED: 330278321 Status: stable, progressing Assessment/Plan PLAN Echo, Troponin Check echo Check ekg Awaiting cardio consult Pain specialist called JULISSA JACOBS Jun 09, 2017 17:34
[2017-06-09 20:00] VITALS: BP 131/92
[2017-06-09] MEDS: Heparin 5000 units/ml inj SUBQ SCH (21:00)
[2017-06-10] MEDS: HYDROmorphone 4mg tab ORAL SCH ×6 (01:05→20:50)
[2017-06-10 04:00] VITALS: BP 150/93
[2017-06-10 08:00] VITALS: BP 137/88
[2017-06-10 08:24] LABS: CHOLESTEROL 214 MG/DL (< 200); HDL CHOLESTEROL 47 mg/dL (40-89); TRIGLYCERIDES 118 MG/DL (41-150)
[2017-06-10 08:25] LABS: HEMOGLOBIN 14.9 G/DL (14.2-18.0); RED BLOOD COUNT 4.89 M/UL (4.70-6.10); WHITE BLOOD COUNT 7.9 K/UL (4.8-10.8)
[2017-06-10 08:26] LABS: BASOPHILS % (AUTO) 0.9 % (0.0-2.0); EOSINOPHILS % (AUTO) 1.1 % (0.0-3.0); HEMATOCRIT 43.9 % (42.0-52.0); LYMPHOCYTES % (AUTO) 17.3 % (20.0-45.0); MEAN CORPUSCULAR VOLUME 90 FL (80-99); MONOCYTES % (AUTO) 10.3 % (1.0-10.0); NEUTROPHILS % (AUTO) 70.5 % (45.0-75.0); PLATELET COUNT 257 K/UL (150-450); RED CELL DISTRIBUTION WIDTH 11.6 % (11.6-14.8)
[2017-06-10] MEDS: Meclizine 25mg tab ORAL SCH ×3 (08:40→17:21)
[2017-06-10] MEDS: DULoxetine 30mg cap ORAL SCH (08:40)
[2017-06-10] MEDS: Aspirin Baby 81mg ORAL SCH (08:40)
[2017-06-10] MEDS: Heparin 5000 units/ml inj SUBQ SCH ×2 (08:43→20:51)
[2017-06-10 12:00] VITALS: BP 128/95
--- NOTE | 2017-06-10 12:53 | History and Physical ---
History of Present Illness General Date patient seen: Jun 09, 2017 Reason for Hospitalization: Chest Pain Present Illness HPI 56-year-old male p/w chest pain for one day. Chest pain started while sleeping. Localized to substernal area, no radiation to back or other areas, sharp in nature, gradual in onset, lasted several hours and slowly subsided upon coming to the emergency room. +SOB. Denies palpitations, diaphoresis, n/v. Denies fever, chills, cough, abd pain. He is admitted to telemetry for further evaluation. Allergies: Coded Allergies: No Known Allergies (Unverified , 08/10/13) Medication History Scheduled Al Hydroxide/mg Hydroxide (Mag-Al Liquid), 30 ML ORAL Q6HR, (Reported) Docusate Sodium* (Docusate Sodium*), 100 MG ORAL TWICE A DAY, (Reported) Duloxetine Hcl* (Cymbalta*), 60 MG ORAL DAILY Gabapentin (Neurontin), 300 MG ORAL FOUR TIMES A DAY, (Reported) Hydromorphone HCl (Dilaudid), 4 MG ORAL Q4H, (Reported) Ibuprofen* (Motrin*), 800 MG ORAL BID, (Reported) Loratadine (Loratadine), 10 MG PO DAILY, (Reported) Lorazepam* (Ativan*), 1 MG ORAL THREE TIMES A DAY Lorazepam* (Ativan*), 0.5 MG ORAL once daily Meclizine Hcl* (Meclizine*), 25 MG ORAL THREE TIMES A DAY Methadone Hcl* (Methadone*), 5 MG PO BID, (Reported) Mirtazapine* (Remeron*), 7.5 MG ORAL BEDTIME Multivitamin (Multi Vitamin Daily), 1 TAB ORAL DAILY, (Reported) Polyethylene Glycol 3350* (Miralax*), 17 GM ORAL HS, (Reported) Sennosides* (Senno*), 2 TAB ORAL BEDTIME, (Reported) Temazepam* (Restoril*), 7.5 MG ORAL BEDTIME, (Reported) Scheduled PRN Acetaminophen* (Acetaminophen 325MG Tablet*), 650 MG ORAL Q4H PRN for Fever/ Headache/Mild Pain, (Reported) Diazepam* (Valium*), 2.5 MG ORAL DAILY PRN for ANXIETY, (Reported) Docusate Sodium (Dulcolax Stool Softener), 100 MG PO BID PRN for Constipation, ( Reported) Melatonin (Melatonin), 9 MG ORAL BEDTIME PRN for Insomnia, (Reported) Zolpidem Tartrate* (Ambien*), 10 MG ORAL BEDTIME PRN for Insomnia, (Reported) Zolpidem Tartrate* (Ambien*), 5 MG ORAL BEDTIME PRN for Insomnia, (Reported) Miscellaneous Medications Diphenhydramine HCl (Benadryl), 25 MG PO, (Reported) Patient History Healthcare decision maker Resuscitation status Full Code Advanced Directive on File No Past Medical/Surgical History Past Medical/Surgical History: (1) Multiple injuries due to trauma (2) Cervical sprain (3) Neck pain Review of Systems All Other Systems: negative except mentioned in HPI Physical Exam General Appearance: WD/WN Lines, tubes and drains: peripheral HEENT: normocephalic, atraumatic Neck: non-tender, supple Respiratory/Chest: chest wall non-tender, lungs clear Cardiovascular/Chest: normal peripheral pulses, normal rate Abdomen: normal bowel sounds, soft Genitourinary/Rectal: normal genital exam Extremities: normal range of motion Skin Exam: normal pigmentation Last 24 Hour Vital Signs Date Time Temp Pulse Resp B/P (MAP) Pulse Ox O2 Delivery O2 Flow Rate FiO2 06/10/17 12:00 97.9 72 18 128/95 95 Room Air 06/10/17 08:02 86 18 Room Air 21 06/10/17 08:00 98.1 91 18 137/88 96 Room Air 06/10/17 08:00 86 06/10/17 04:00 97.3 90 20 150/93 98 Room Air 06/10/17 03:19 70 06/10/17 00:00 73 06/09/17 20:00 97.3 66 20 131/92 97 Room Air 06/09/17 19:05 69 06/09/17 18:29 98.8 06/09/17 17:30 98.8 06/09/17 16:00 97 06/09/17 13:00 98.8 84 20 145/95 95 Room Air Intake and Output 06/09/17 06/10/17 19:00 07:00 Intake Total 0 ml Output Total 300 ml Balance -300 ml Intake Oral 0 ml Output Urine Total 300 ml # Bowel Movements 1 Laboratory Tests Test 06/09/17 16:15 2/14/18 07:27 Troponin I 0.000 ng/mL (0.000-0.056) 0.000 ng/mL (0.000-0.056) White Blood Count 7.9 K/UL (4.8-10.8) Red Blood Count 4.89 M/UL (4.70-6.10) Hemoglobin 14.9 G/DL (14.2-18.0) Hematocrit 43.9 % (42.0-52.0) Mean Corpuscular Volume 90 FL (80-99) Mean Corpuscular Hemoglobin 30.5 PG (27.0-31.0) Mean Corpuscular Hemoglobin Concent 34.0 G/DL (32.0-36.0) Red Cell Distribution Width 11.6 % (11.6-14.8) Platelet Count 257 K/UL (150-450) Mean Platelet Volume 9.9 FL (6.5-10.1) Neutrophils (%) (Auto) 70.5 % (45.0-75.0) Lymphocytes (%) (Auto) 17.3 % (20.0-45.0) L Monocytes (%) (Auto) 10.3 % (1.0-10.0) H Eosinophils (%) (Auto) 1.1 % (0.0-3.0) Basophils (%) (Auto) 0.9 % (0.0-2.0) Prothrombin Time 10.3 SEC (9.30-11.50) Prothromb Time International Ratio 1.0 (0.9-1.1) Activated Partial Thromboplast Time 27 SEC (23-33) C-Reactive Protein, Quantitative 1.1 mg/dL (0.00-0.90) H Triglycerides Level 118 MG/DL (41-150) Cholesterol Level 214 MG/DL (< 200) H LDL Cholesterol 145 mg/dL (<100) H HDL Cholesterol 47 mg/dL (40-89) Cholesterol/HDL Ratio 4.6 (3.3-4.4) H Thyroid Stimulating Hormone (TSH) 2.124 uiU/mL (0.358-3.740) Height (Feet): 5 Height (Inches): 10.00 Weight (Pounds): 225 Medications Current Medications Medications (Trade) Dose Ordered Sig/Nahomi Route PRN Reason Start Time Stop Time Status Last Admin Dose Admin Acetaminophen (Tylenol) 650 mg Q4H PRN ORAL Fever/Headache/Mild Pain 06/09/17 15:45 07/09/17 15:44 Albuterol/ Ipratropium (Albuterol/ Ipratropium) 3 ml EVERY 4 HOURS PRN HHN Shortness of Breath 06/09/17 15:45 06/14/17 15:44 Aspirin (ASA) 162 mg DAILY ORAL 06/10/17 09:00 07/10/17 08:59 06/10/17 08:40 Diazepam (Valium) 2.5 mg DAILY PRN ORAL ANXIETY 06/09/17 15:45 06/16/17 15:44 Diltiazem HCl (Cardizem) 10 mg EVERY HOUR PRN IV heart rate more than 120, 06/09/17 15:45 07/09/17 15:44 Duloxetine HCl (Cymbalta) 60 mg DAILY ORAL 06/10/17 09:00 07/10/17 08:59 06/10/17 08:40 Enalaprilat (Vasotec) 2.5 mg EVERY 6 HOURS PRN IV sbp more than 160 06/09/17 15:45 07/09/17 15:44 Gabapentin (Neurontin) 300 mg FOUR TIMES A DAY ORAL 06/09/17 18:00 07/09/17 17:59 06/10/17 12:42 Heparin Sodium (Porcine) (Heparin 5000 units/ml) 5,000 units EVERY 12 HOURS SUBQ 06/09/17 21:00 07/09/17 20:59 06/10/17 08:43 Hydromorphone HCl (Dilaudid) 4 mg Q4HR ORAL 06/09/17 17:00 06/16/17 16:59 06/10/17 12:43 Ketorolac Tromethamine (Toradol 30mg) 30 mg Q6HR PRN IV moderate pain ( 4-6) 06/09/17 15:45 06/14/17 15:44 Meclizine HCl (Antivert) 25 mg THREE TIMES A DAY ORAL 06/09/17 18:00 07/09/17 17:59 06/10/17 12:42 Methadone HCl (Methadone HCl) 5 mg Q12HR ORAL 06/09/17 21:00 06/16/17 20:59 06/10/17 08:41 Morphine Sulfate (Morphine Sulfate) 2 mg EVERY 4 HOURS PRN IVP severe Pain (Pain Scale 7-10) 06/09/17 15:45 06/16/17 15:44 Nitroglycerin (Ntg) 0.4 mg Every 5 Minutes PRN SL Prn Chest Pain 06/09/17 15:45 07/09/17 15:44 Ondansetron HCl (Zofran) 4 mg Q6H PRN IVP Nausea & Vomiting 06/09/17 15:45 07/09/17 15:44 Polyethylene Glycol (Miralax) 17 gm DAILYPRN PRN ORAL Constipation 06/09/17 15:45 07/09/17 15:44 Temazepam (Restoril) 15 mg HSPRN PRN ORAL Insomnia 06/09/17 15:45 06/16/17 15:44 06/09/17 22:51 Assessment/Plan Problem List: (1) ACS (acute coronary syndrome) ICD Codes: I24.9 - Acute ischemic heart disease, unspecified SNOMED: 808842914 (2) Cervical sprain ICD Codes: S13.9XXA - Sprain of joints and ligaments of unspecified parts of neck, initial encounter SNOMED: 304775910 (3) Multiple injuries due to trauma ICD Codes: T07 - Multiple injuries due to trauma SNOMED: 602255326 Assessment/Plan serial troponin, check echo pain management to see. serial troponin JULISSA JACOBS Jun 10, 2017 12:53
--- NOTE | 2017-06-10 12:59 | Pulmonology Progress Note ---
Assessment/Plan Problems: (1) ACS (acute coronary syndrome) (2) Cervical sprain (3) Multiple injuries due to trauma Assessment/Plan echo, troponin check echo check ekg awaiting cardio consult Pain specialist called Subjective ROS Limited/Unobtainable: No Constitutional: Reports: no symptoms HEENT: Repors: no symptoms Respiratory: Reports: no symptoms Allergies: Coded Allergies: No Known Allergies (Unverified , 08/10/13) Objective Last 24 Hour Vital Signs Date Time Temp Pulse Resp B/P (MAP) Pulse Ox O2 Delivery O2 Flow Rate FiO2 06/10/17 12:00 97.9 72 18 128/95 95 Room Air 06/10/17 08:02 86 18 Room Air 21 06/10/17 08:00 98.1 91 18 137/88 96 Room Air 06/10/17 08:00 86 06/10/17 04:00 97.3 90 20 150/93 98 Room Air 06/10/17 03:19 70 06/10/17 00:00 73 06/09/17 20:00 97.3 66 20 131/92 97 Room Air 06/09/17 19:05 69 06/09/17 18:29 98.8 06/09/17 17:30 98.8 06/09/17 16:00 97 06/09/17 13:00 98.8 84 20 145/95 95 Room Air Intake and Output 06/09/17 06/10/17 19:00 07:00 Intake Total 0 ml Output Total 300 ml Balance -300 ml Intake Oral 0 ml Output Urine Total 300 ml # Bowel Movements 1 Objective General Appearance: WD/WN Lines, tubes and drains: peripheral HEENT: normocephalic, atraumatic Neck: non-tender, supple Respiratory/Chest: chest wall non-tender, lungs clear Cardiovascular/Chest: normal peripheral pulses, normal rate Abdomen: normal bowel sounds, soft Genitourinary/Rectal: normal genital exam Extremities: normal range of motion Skin Exam: normal pigmentation Laboratory Tests 06/09/17 16:15: Troponin I 0.000 06/10/17 07:27: Troponin I 0.000, White Blood Count 7.9, Red Blood Count 4.89, Hemoglobin 14.9, Hematocrit 43.9, Mean Corpuscular Volume 90, Mean Corpuscular Hemoglobin 30.5, Mean Corpuscular Hemoglobin Concent 34.0, Red Cell Distribution Width 11.6, Platelet Count 257, Mean Platelet Volume 9.9, Neutrophils (%) (Auto) 70.5, Lymphocytes (%) (Auto) 17.3L, Monocytes (%) (Auto) 10.3H, Eosinophils (%) (Auto ) 1.1, Basophils (%) (Auto) 0.9, Prothrombin Time 10.3, Prothromb Time International Ratio 1.0, Activated Partial Thromboplast Time 27, C-Reactive Protein, Quantitative 1.1H, Triglycerides Level 118, Cholesterol Level 214H, LDL Cholesterol 145H, HDL Cholesterol 47, Cholesterol/HDL Ratio 4.6H, Thyroid Stimulating Hormone (TSH) 2.124 Current Medications Medications (Trade) Dose Ordered Sig/Nahomi Route PRN Reason Start Time Stop Time Status Last Admin Dose Admin Acetaminophen (Tylenol) 650 mg Q4H PRN ORAL Fever/Headache/Mild Pain 06/09/17 15:45 07/09/17 15:44 Albuterol/ Ipratropium (Albuterol/ Ipratropium) 3 ml EVERY 4 HOURS PRN HHN Shortness of Breath 06/09/17 15:45 06/14/17 15:44 Aspirin (ASA) 162 mg DAILY ORAL 06/10/17 09:00 07/10/17 08:59 06/10/17 08:40 Diazepam (Valium) 2.5 mg DAILY PRN ORAL ANXIETY 06/09/17 15:45 06/16/17 15:44 Diltiazem HCl (Cardizem) 10 mg EVERY HOUR PRN IV heart rate more than 120, 06/09/17 15:45 07/09/17 15:44 Duloxetine HCl (Cymbalta) 60 mg DAILY ORAL 06/10/17 09:00 07/10/17 08:59 06/10/17 08:40 Enalaprilat (Vasotec) 2.5 mg EVERY 6 HOURS PRN IV sbp more than 160 06/09/17 15:45 07/09/17 15:44 Gabapentin (Neurontin) 300 mg FOUR TIMES A DAY ORAL 06/09/17 18:00 07/09/17 17:59 06/10/17 12:42 Heparin Sodium (Porcine) (Heparin 5000 units/ml) 5,000 units EVERY 12 HOURS SUBQ 06/09/17 21:00 07/09/17 20:59 06/10/17 08:43 Hydromorphone HCl (Dilaudid) 4 mg Q4HR ORAL 06/09/17 17:00 06/16/17 16:59 06/10/17 12:43 Ketorolac Tromethamine (Toradol 30mg) 30 mg Q6HR PRN IV moderate pain ( 4-6) 06/09/17 15:45 06/14/17 15:44 Meclizine HCl (Antivert) 25 mg THREE TIMES A DAY ORAL 06/09/17 18:00 07/09/17 17:59 06/10/17 12:42 Methadone HCl (Methadone HCl) 5 mg Q12HR ORAL 06/09/17 21:00 06/16/17 20:59 06/10/17 08:41 Morphine Sulfate (Morphine Sulfate) 2 mg EVERY 4 HOURS PRN IVP severe Pain (Pain Scale 7-10) 06/09/17 15:45 06/16/17 15:44 Nitroglycerin (Ntg) 0.4 mg Every 5 Minutes PRN SL Prn Chest Pain 06/09/17 15:45 07/09/17 15:44 Ondansetron HCl (Zofran) 4 mg Q6H PRN IVP Nausea & Vomiting 06/09/17 15:45 07/09/17 15:44 Polyethylene Glycol (Miralax) 17 gm DAILYPRN PRN ORAL Constipation 06/09/17 15:45 07/09/17 15:44 Temazepam (Restoril) 15 mg HSPRN PRN ORAL Insomnia 06/09/17 15:45 06/16/17 15:44 06/09/17 22:51 JULISSA JACOBS Jun 10, 2017 12:58
[2017-06-10 16:00] VITALS: BP 135/93
--- NOTE | 2017-06-10 16:19 | Cardiology Report ---
APPROVED REPORT EXAM: Two-dimensional and M-mode echocardiogram with Doppler and color Doppler. INDICATION LV FUNCTION M-Mode DIMENSIONS IVSd1.8 (0.7-1.1cm)Left Atrium (MM)3.5 (1.6-4.0cm) LVDd4.5 (3.5-5.6cm)Aortic Root3.7 (2.0-3.7cm) PWd1.3 (0.7-1.1cm)Aortic Cusp Exc.1.6 (1.5-2.0cm) IVSs2.3 cm LVDs2.9 (2.5-4.0cm) PWs2.1 cm Technically difficult study due to poor acoustical windows. Normal left ventricular chamber size, systolic function and wall motion to extent visualized. Left ventricular ejection fraction estimated to be 60-65 %. No evidence of left ventricular hypertrophy . No evidence of pericardial effusion. All other cardiac chamber sizes are within normal limits . Mildly Focal aortic valve sclerosis with adequate cusp excursion. Mildly Mitral annulus and aortic root calcification. pulmonic valve structure not well visualized . Normal tricuspid valve structure. IVC at size 2.0 cm with slightly physiologic collapse . A color flow and spectral Doppler study was performed and revealed: Mild aortic insufficiency . Trace mitral valve regurgitation . Normal left ventricular diastolic function. Trace tricuspid regurgitation. Tricuspid systolic velocities suggests peak right ventricular systolic pressure of 21 mmHg, No Pulmonic regurgitation present
--- NOTE | 2017-06-10 19:40 | Cardiology Progress Note ---
Assessment/Plan Assessment/Plan all trop neg despite 7-10 day of cp no sig rf for cad repeat ekg doubt cardaic ischemia as a cause of present pain not a pleuritic type of pain consider spine ms cause of pain however has sig celeste he says which is new for 2 weeks will ahve stress test mary anne Objective Last 24 Hour Vital Signs Date Time Temp Pulse Resp B/P (MAP) Pulse Ox O2 Delivery O2 Flow Rate FiO2 06/10/17 16:00 97.7 82 18 135/93 95 Room Air 06/10/17 16:00 81 06/10/17 13:42 97.9 06/10/17 12:00 97.9 72 18 128/95 95 Room Air 06/10/17 12:00 100 06/10/17 08:02 86 18 Room Air 21 06/10/17 08:00 98.1 91 18 137/88 96 Room Air 06/10/17 08:00 86 06/10/17 04:00 97.3 90 20 150/93 98 Room Air 06/10/17 03:19 70 06/10/17 00:00 73 06/09/17 20:00 97.3 66 20 131/92 97 Room Air Intake and Output 06/09/17 06/10/17 19:00 07:00 Intake Total 0 ml Output Total 300 ml Balance -300 ml Intake Oral 0 ml Output Urine Total 300 ml # Bowel Movements 1 Laboratory Tests Test 06/10/17 07:27 White Blood Count 7.9 K/UL (4.8-10.8) Red Blood Count 4.89 M/UL (4.70-6.10) Hemoglobin 14.9 G/DL (14.2-18.0) Hematocrit 43.9 % (42.0-52.0) Mean Corpuscular Volume 90 FL (80-99) Mean Corpuscular Hemoglobin 30.5 PG (27.0-31.0) Mean Corpuscular Hemoglobin Concent 34.0 G/DL (32.0-36.0) Red Cell Distribution Width 11.6 % (11.6-14.8) Platelet Count 257 K/UL (150-450) Mean Platelet Volume 9.9 FL (6.5-10.1) Neutrophils (%) (Auto) 70.5 % (45.0-75.0) Lymphocytes (%) (Auto) 17.3 % (20.0-45.0) L Monocytes (%) (Auto) 10.3 % (1.0-10.0) H Eosinophils (%) (Auto) 1.1 % (0.0-3.0) Basophils (%) (Auto) 0.9 % (0.0-2.0) Prothrombin Time 10.3 SEC (9.30-11.50) Prothromb Time International Ratio 1.0 (0.9-1.1) Activated Partial Thromboplast Time 27 SEC (23-33) Troponin I 0.000 ng/mL (0.000-0.056) C-Reactive Protein, Quantitative 1.1 mg/dL (0.00-0.90) H Triglycerides Level 118 MG/DL (41-150) Cholesterol Level 214 MG/DL (< 200) H LDL Cholesterol 145 mg/dL (<100) H HDL Cholesterol 47 mg/dL (40-89) Cholesterol/HDL Ratio 4.6 (3.3-4.4) H Thyroid Stimulating Hormone (TSH) 2.124 uiU/mL (0.358-3.740) VERNON ARANDA Jun 10, 2017 19:40
[2017-06-10 20:00] VITALS: BP 139/93
[2017-06-11] VITALS: BP 129/76
--- NOTE | 2017-06-11 00:30 | Consultation ---
DATE OF CONSULTATION: 06/10/2017 CARDIOLOGY CONSULTATION CONSULTING PHYSICIAN: Tyron Martines M.D. REFERRING PHYSICIAN: Haris Lopez M.D. REASON FOR REFERRAL: Chest pain. HISTORY OF PRESENT ILLNESS: This is a middle-aged gentleman who has no history of medical problems. The patient has had two weeks of exertional shortness of breath and one week of constant pain to the left of the sternum that has been present constantly for the past 7 to 10 days. No relieving or exacerbating factors noted by the patient, and in fact, no change with eating, swallowing, taking a deep breath, twisting, turning, or laying down. In fact, he indicates that the pain is there all the time including most of the time when he is lying down. There is no orthopnea. There is no PND. There is occasional dizziness on standing. No heart pounding or palpitations. PAST MEDICAL HISTORY: Positive for history of cervical radiculopathy, history of abnormal gait, spondylosis, lack of coordination, history of falling, traumatic fractures, opioid dependence, chronic pain, and muscle weakness. ALLERGIES: Not allergic to any medications. SOCIAL HISTORY: He used to smoke and drink, quit those about five years ago. Denies any drug use. REVIEW OF SYSTEMS: GASTROINTESTINAL: Negative. GENITOURINARY: Negative. PULMONARY: Negative. CONSTITUTIONAL: Negative. NEUROLOGICAL: Numbness and tingling sensation in his left arm he says. PHYSICAL EXAMINATION: GENERAL: Shows him to be a middle-aged gentleman, in no respiratory distress. He is actually lying down. Head of bed elevation only approximately 10 degrees. NECK: Supple. No jugular venous distention. LUNGS: Clear to auscultation and percussion. CARDIAC: S1 is normal. S2 is normal. Regular rate and rhythm. No heaves, thrills, gallops, or rubs are noted. ABDOMEN: Soft and nontender. Positive bowel sounds. EXTREMITIES: There is no clubbing, cyanosis, nor is there any edema. NEUROLOGICAL: He is awake, alert, responsive, in no apparent respiratory distress. LABORATORY AND DIAGNOSTIC DATA: Laboratory values, white count of 7.9, hemoglobin 14.9, and platelet count of 257. Sodium is 139, potassium 3.3, chloride 102, bicarbonate 28, BUN of 9, creatinine 0.9, and glucose of 118. Troponins are negative on three separate occasions. ProBNP of 74. Total cholesterol of 214, LDL of 145, and HDL of 47. TSH of 2.12. INR 1.0 and PTT of 27. Chest x-ray reportedly shows no acute disease pattern and echocardiogram shows normal left ventricular systolic function, ejection fraction 60% to 65%, no evidence of pericardial effusion, and no significant abnormalities are noted. The patient's EKG is unremarkable except for possibility of longer QT, no ST-T abnormalities of any significant degree is noted. ASSESSMENT AND PLAN: 1. Atypical chest pain constant for approximately 7 to 10 days. He has negative troponin. 2. Exertional dyspnea. This patient was seen in cardiac consultation. The patient has no EKG abnormalities to suggest ischemia and electrocardiogram will . The patient has no evidence of myocardial infarction on cardiac enzymes despite approximately 7 to 10 days of chest pain. Echocardiogram shows normal left ventricular systolic function. His chest x-ray is unremarkable. The patient's pain is unlikely to be cardiac in origin, and other etiologies are to be looked into including possibility of spine disorder that may be causing his pain. Tyron Martines M.D. DR: DILSHAD JOB#: [id number] CC:
[2017-06-11] MEDS: HYDROmorphone 4mg tab ORAL SCH ×5 (01:13→17:09)
[2017-06-11 04:00] VITALS: BP 138/97
[2017-06-11 08:00] VITALS: BP 138/87
[2017-06-11 09:48] LABS: BASOPHILS % (AUTO) 0.7 % (0.0-2.0); EOSINOPHILS % (AUTO) 2.1 % (0.0-3.0); HEMATOCRIT 39.6 % (42.0-52.0); HEMOGLOBIN 13.8 G/DL (14.2-18.0); LYMPHOCYTES % (AUTO) 18.9 % (20.0-45.0); MEAN CORPUSCULAR VOLUME 89 FL (80-99); MONOCYTES % (AUTO) 9.1 % (1.0-10.0); NEUTROPHILS % (AUTO) 69.3 % (45.0-75.0); PLATELET COUNT 247 K/UL (150-450); RED BLOOD COUNT 4.44 M/UL (4.70-6.10); RED CELL DISTRIBUTION WIDTH 11.3 % (11.6-14.8); WHITE BLOOD COUNT 7.3 K/UL (4.8-10.8)
[2017-06-11 09:58] LABS: ANION GAP 5 mmol/L (5-15); BLOOD UREA NITROGEN 9 mg/dL (7-18); CALCIUM 8.7 MG/DL (8.5-10.1); CARBON DIOXIDE 30 MMOL/L (21-32); CHLORIDE 102 MMOL/L (98-107); CREATININE 0.8 MG/DL (0.55-1.30); POTASSIUM 3.4 MMOL/L (3.5-5.1); SODIUM 137 MMOL/L (136-145)
--- NOTE | 2017-06-11 10:37 | Cardiology Report ---
APPROVED REPORT EKG Measurement Heart [id number] Normal sinus rhythm Nonspecific T wave abnormality Abnormal ECG
[2017-06-11] MEDS: Meclizine 25mg tab ORAL SCH ×3 (11:25→17:09)
[2017-06-11] MEDS: Aspirin Baby 81mg ORAL SCH (11:27)
[2017-06-11] MEDS: DULoxetine 30mg cap ORAL SCH (11:27)
[2017-06-11] MEDS: Heparin 5000 units/ml inj SUBQ SCH ×2 (11:31→20:53)
[2017-06-11 12:00] VITALS: BP 124/94
--- NOTE | 2017-06-11 12:39 | Pulmonology Progress Note ---
Assessment/Plan Problems: (1) ACS (acute coronary syndrome) (2) Cervical sprain (3) Multiple injuries due to trauma Assessment/Plan echo, troponin check echo check ekg cardio consult appreciated stress testing in process Pain specialist called Subjective ROS Limited/Unobtainable: No Constitutional: Reports: no symptoms HEENT: Repors: no symptoms Allergies: Coded Allergies: No Known Allergies (Unverified , 08/10/13) Objective Last 24 Hour Vital Signs Date Time Temp Pulse Resp B/P (MAP) Pulse Ox O2 Delivery O2 Flow Rate FiO2 06/11/17 08:36 87 18 Room Air 21 06/11/17 04:00 75 06/11/17 04:00 97.2 89 20 138/97 92 Room Air 06/11/17 00:00 97.4 87 20 129/76 92 Room Air 06/11/17 00:00 77 06/10/17 20:00 98.3 93 21 139/93 95 Room Air 06/10/17 20:00 86 06/10/17 19:48 89 18 Room Air 21 06/10/17 16:00 97.7 82 18 135/93 95 Room Air 06/10/17 16:00 81 06/10/17 13:42 97.9 Intake and Output 06/10/17 06/11/17 19:00 07:00 Intake Total 360 ml Output Total 650 ml 600 ml Balance -290 ml -600 ml Intake Oral 360 ml Output Urine Total 650 ml 600 ml Objective General Appearance: WD/WN Lines, tubes and drains: peripheral HEENT: normocephalic, atraumatic Neck: non-tender, supple Respiratory/Chest: chest wall non-tender, lungs clear Cardiovascular/Chest: normal peripheral pulses, normal rate Abdomen: normal bowel sounds, soft Genitourinary/Rectal: normal genital exam Extremities: normal range of motion Skin Exam: normal pigmentation Microbiology Date/Time Source Procedure Growth Status 06/09/17 11:53 Nasal Nares MRSA Culture - Final NO METHICILLIN RESISTANT STAPH AUREUS... Complete 06/09/17 11:53 Rectum VRE Culture - Final NO VANCOMYCIN RESISTANT ENTEROCOCCUS ... Complete Laboratory Tests 06/11/17 07:30: White Blood Count 7.3, Red Blood Count 4.44L, Hemoglobin 13.8L, Hematocrit 39.6L , Mean Corpuscular Volume 89, Mean Corpuscular Hemoglobin 31.0, Mean Corpuscular Hemoglobin Concent 34.7, Red Cell Distribution Width 11.3L, Platelet Count 247, Mean Platelet Volume 9.4, Neutrophils (%) (Auto) 69.3, Lymphocytes (%) (Auto) 18.9L, Monocytes (%) (Auto) 9.1, Eosinophils (%) (Auto) 2.1, Basophils (%) (Auto) 0.7, Sodium Level 137, Potassium Level 3.4L, Chloride Level 102, Carbon Dioxide Level 30, Anion Gap 5, Blood Urea Nitrogen 9, Creatinine 0.8, Estimat Glomerular Filtration Rate > 60, Glucose Level 88, Calcium Level 8.7, Troponin I 0.017 Current Medications Medications (Trade) Dose Ordered Sig/Nahomi Route PRN Reason Start Time Stop Time Status Last Admin Dose Admin Acetaminophen (Tylenol) 650 mg Q4H PRN ORAL Fever/Headache/Mild Pain 06/09/17 15:45 07/09/17 15:44 Albuterol/ Ipratropium (Albuterol/ Ipratropium) 3 ml EVERY 4 HOURS PRN HHN Shortness of Breath 06/09/17 15:45 06/14/17 15:44 Aspirin (ASA) 162 mg DAILY ORAL 06/10/17 09:00 07/10/17 08:59 06/11/17 11:27 Diazepam (Valium) 2.5 mg DAILY PRN ORAL ANXIETY 06/09/17 15:45 06/16/17 15:44 Diltiazem HCl (Cardizem) 10 mg EVERY HOUR PRN IV heart rate more than 120, 06/09/17 15:45 07/09/17 15:44 Duloxetine HCl (Cymbalta) 60 mg DAILY ORAL 06/10/17 09:00 07/10/17 08:59 06/11/17 11:27 Enalaprilat (Vasotec) 2.5 mg EVERY 6 HOURS PRN IV sbp more than 160 06/09/17 15:45 07/09/17 15:44 Gabapentin (Neurontin) 300 mg FOUR TIMES A DAY ORAL 06/09/17 18:00 07/09/17 17:59 06/11/17 11:27 Heparin Sodium (Porcine) (Heparin 5000 units/ml) 5,000 units EVERY 12 HOURS SUBQ 06/09/17 21:00 07/09/17 20:59 06/11/17 11:31 Hydromorphone HCl (Dilaudid) 4 mg Q4HR ORAL 06/09/17 17:00 06/16/17 16:59 06/11/17 11:26 Ketorolac Tromethamine (Toradol 30mg) 30 mg Q6HR PRN IV moderate pain ( 4-6) 06/09/17 15:45 06/14/17 15:44 Meclizine HCl (Antivert) 25 mg THREE TIMES A DAY ORAL 06/09/17 18:00 07/09/17 17:59 06/11/17 11:25 Methadone HCl (Methadone HCl) 5 mg Q12HR ORAL 06/09/17 21:00 06/16/17 20:59 06/11/17 11:27 Morphine Sulfate (Morphine Sulfate) 2 mg EVERY 4 HOURS PRN IVP severe Pain (Pain Scale 7-10) 06/09/17 15:45 06/16/17 15:44 Nitroglycerin (Ntg) 0.4 mg Every 5 Minutes PRN SL Prn Chest Pain 06/09/17 15:45 07/09/17 15:44 Ondansetron HCl (Zofran) 4 mg Q6H PRN IVP Nausea & Vomiting 06/09/17 15:45 07/09/17 15:44 Polyethylene Glycol (Miralax) 17 gm DAILYPRN PRN ORAL Constipation 06/09/17 15:45 07/09/17 15:44 Temazepam (Restoril) 15 mg HSPRN PRN ORAL Insomnia 06/09/17 15:45 06/16/17 15:44 06/09/17 22:51 JULISSA JACOBS Jun 11, 2017 12:38
--- NOTE | 2017-06-11 15:15 | Diagnostic Imaging Report ---
Indication: chest pain Technique: The study was conducted under the supervision of a supervisor [employer] boat assembly. lexiscan (regadenoson) infusion over 10 seconds followed by intravenous administration of 31.5 mCi of technetium 99m Myoview was performed. Three plane SPECT imaging of the heart was then performed. A resting study was performed as part of the one-day protocol with 10.1 mCi of technetium 99m myoview injected intravenously at that time. Three plane SPECT imaging of the heart was obtained. Comparison: None Clinical data: 1. Clinical response: Non ischemic 2. Electrocardiographic response: Non ischemic Findings: The myocardial perfusion scan demonstrates no fixed or reversible perfusion defects. LVEF estimated at 74%. IMPRESSION: Negative myocardial perfusion scan
[2017-06-11 16:00] VITALS: BP 124/90
[2017-06-11] MEDS ORDERED: HYDROmorphone 4mg tab ORAL PRN (17:30)
--- NOTE | 2017-06-11 17:30 | Consultation ---
History of Present Illness General Date patient seen: Jun 11, 2017 Chief Complaint: Present Illness Allergies: Coded Allergies: No Known Allergies (Unverified , 08/10/13) Medication History Scheduled Al Hydroxide/mg Hydroxide (Mag-Al Liquid), 30 ML ORAL Q6HR, (Reported) Docusate Sodium* (Docusate Sodium*), 100 MG ORAL TWICE A DAY, (Reported) Duloxetine Hcl* (Cymbalta*), 60 MG ORAL DAILY Gabapentin (Neurontin), 300 MG ORAL FOUR TIMES A DAY, (Reported) Hydromorphone HCl (Dilaudid), 4 MG ORAL Q4H, (Reported) Ibuprofen* (Motrin*), 800 MG ORAL BID, (Reported) Loratadine (Loratadine), 10 MG PO DAILY, (Reported) Lorazepam* (Ativan*), 1 MG ORAL THREE TIMES A DAY Lorazepam* (Ativan*), 0.5 MG ORAL once daily Meclizine Hcl* (Meclizine*), 25 MG ORAL THREE TIMES A DAY Methadone Hcl* (Methadone*), 5 MG PO BID, (Reported) Mirtazapine* (Remeron*), 7.5 MG ORAL BEDTIME Multivitamin (Multi Vitamin Daily), 1 TAB ORAL DAILY, (Reported) Polyethylene Glycol 3350* (Miralax*), 17 GM ORAL HS, (Reported) Sennosides* (Senno*), 2 TAB ORAL BEDTIME, (Reported) Temazepam* (Restoril*), 7.5 MG ORAL BEDTIME, (Reported) Scheduled PRN Acetaminophen* (Acetaminophen 325MG Tablet*), 650 MG ORAL Q4H PRN for Fever/ Headache/Mild Pain, (Reported) Diazepam* (Valium*), 2.5 MG ORAL DAILY PRN for ANXIETY, (Reported) Docusate Sodium (Dulcolax Stool Softener), 100 MG PO BID PRN for Constipation, ( Reported) Melatonin (Melatonin), 9 MG ORAL BEDTIME PRN for Insomnia, (Reported) Zolpidem Tartrate* (Ambien*), 10 MG ORAL BEDTIME PRN for Insomnia, (Reported) Zolpidem Tartrate* (Ambien*), 5 MG ORAL BEDTIME PRN for Insomnia, (Reported) Miscellaneous Medications Diphenhydramine HCl (Benadryl), 25 MG PO, (Reported) Patient History Healthcare decision maker Resuscitation status Full Code Advanced Directive on File No Physical Exam Last 24 Hour Vital Signs Date Time Temp Pulse Resp B/P (MAP) Pulse Ox O2 Delivery O2 Flow Rate FiO2 06/11/17 16:00 97.5 81 18 124/90 95 Room Air 06/11/17 12:00 97.0 88 18 124/94 95 Room Air 06/11/17 12:00 83 06/11/17 08:36 87 18 Room Air 21 06/11/17 08:00 77 06/11/17 08:00 97.9 65 20 138/87 94 Room Air 06/11/17 04:00 75 06/11/17 04:00 97.2 89 20 138/97 92 Room Air 06/11/17 00:00 97.4 87 20 129/76 92 Room Air 06/11/17 00:00 77 06/10/17 20:00 98.3 93 21 139/93 95 Room Air 06/10/17 20:00 86 06/10/17 19:48 89 18 Room Air 21 Intake and Output 06/10/17 06/11/17 19:00 07:00 Intake Total 360 ml Output Total 650 ml 600 ml Balance -290 ml -600 ml Intake Oral 360 ml Output Urine Total 650 ml 600 ml Laboratory Tests Test 06/11/17 07:30 White Blood Count 7.3 K/UL (4.8-10.8) Red Blood Count 4.44 M/UL (4.70-6.10) L Hemoglobin 13.8 G/DL (14.2-18.0) L Hematocrit 39.6 % (42.0-52.0) L Mean Corpuscular Volume 89 FL (80-99) Mean Corpuscular Hemoglobin 31.0 PG (27.0-31.0) Mean Corpuscular Hemoglobin Concent 34.7 G/DL (32.0-36.0) Red Cell Distribution Width 11.3 % (11.6-14.8) L Platelet Count 247 K/UL (150-450) Mean Platelet Volume 9.4 FL (6.5-10.1) Neutrophils (%) (Auto) 69.3 % (45.0-75.0) Lymphocytes (%) (Auto) 18.9 % (20.0-45.0) L Monocytes (%) (Auto) 9.1 % (1.0-10.0) Eosinophils (%) (Auto) 2.1 % (0.0-3.0) Basophils (%) (Auto) 0.7 % (0.0-2.0) Sodium Level 137 MMOL/L (136-145) Potassium Level 3.4 MMOL/L (3.5-5.1) L Chloride Level 102 MMOL/L (98-107) Carbon Dioxide Level 30 MMOL/L (21-32) Anion Gap 5 mmol/L (5-15) Blood Urea Nitrogen 9 mg/dL (7-18) Creatinine 0.8 MG/DL (0.55-1.30) Estimat Glomerular Filtration Rate > 60 mL/min (>60) Glucose Level 88 MG/DL (74-106) Calcium Level 8.7 MG/DL (8.5-10.1) Troponin I 0.017 ng/mL (0.000-0.056) Height (Feet): 5 Height (Inches): 10.00 Weight (Pounds): 225 Medications Current Medications Medications (Trade) Dose Ordered Sig/Nahomi Route PRN Reason Start Time Stop Time Status Last Admin Dose Admin Acetaminophen (Tylenol) 650 mg Q4H PRN ORAL Fever/Headache/Mild Pain 06/09/17 15:45 07/09/17 15:44 Albuterol/ Ipratropium (Albuterol/ Ipratropium) 3 ml EVERY 4 HOURS PRN HHN Shortness of Breath 06/09/17 15:45 06/14/17 15:44 Aspirin (ASA) 162 mg DAILY ORAL 06/10/17 09:00 07/10/17 08:59 06/11/17 11:27 Diazepam (Valium) 2.5 mg DAILY PRN ORAL ANXIETY 06/09/17 15:45 06/16/17 15:44 Diltiazem HCl (Cardizem) 10 mg EVERY HOUR PRN IV heart rate more than 120, 06/09/17 15:45 07/09/17 15:44 Duloxetine HCl (Cymbalta) 60 mg DAILY ORAL 06/10/17 09:00 07/10/17 08:59 06/11/17 11:27 Enalaprilat (Vasotec) 2.5 mg EVERY 6 HOURS PRN IV sbp more than 160 06/09/17 15:45 07/09/17 15:44 Gabapentin (Neurontin) 300 mg FOUR TIMES A DAY ORAL 06/09/17 18:00 07/09/17 17:59 06/11/17 17:10 Heparin Sodium (Porcine) (Heparin 5000 units/ml) 5,000 units EVERY 12 HOURS SUBQ 06/09/17 21:00 07/09/17 20:59 06/11/17 11:31 Hydromorphone HCl (Dilaudid) 4 mg Q4HR ORAL 06/09/17 17:00 06/16/17 16:59 06/11/17 17:09 Ketorolac Tromethamine (Toradol 30mg) 30 mg Q6HR PRN IV moderate pain ( 4-6) 06/09/17 15:45 06/14/17 15:44 Meclizine HCl (Antivert) 25 mg THREE TIMES A DAY ORAL 06/09/17 18:00 07/09/17 17:59 06/11/17 17:09 Methadone HCl (Methadone HCl) 5 mg Q12HR ORAL 06/09/17 21:00 06/16/17 20:59 06/11/17 11:27 Morphine Sulfate (Morphine Sulfate) 2 mg EVERY 4 HOURS PRN IVP severe Pain (Pain Scale 7-10) 06/09/17 15:45 06/16/17 15:44 Nitroglycerin (Ntg) 0.4 mg Every 5 Minutes PRN SL Prn Chest Pain 06/09/17 15:45 07/09/17 15:44 Ondansetron HCl (Zofran) 4 mg Q6H PRN IVP Nausea & Vomiting 06/09/17 15:45 07/09/17 15:44 Polyethylene Glycol (Miralax) 17 gm DAILYPRN PRN ORAL Constipation 06/09/17 15:45 07/09/17 15:44 Temazepam (Restoril) 15 mg HSPRN PRN ORAL Insomnia 06/09/17 15:45 06/16/17 15:44 06/09/17 22:51 Assessment/Plan Assessment/Plan (1) Cervical and Lumbar DDD (2) Cervical and Lumbar Spondylosis (3) Cervical and Lumbar Radiculopathy (4) Narcotic dependency seen dedicated JESSICA BARBOUR Jun 11, 2017 17:30
--- NOTE | 2017-06-11 19:39 | Cardiology Progress Note ---
Assessment/Plan Assessment/Plan 1. Atypical chest pain constant for approximately 7 to 10 days. 2. Exertional dyspnea. echo neg trop neg perfusion iamgin neg ok to dc from [facility] viewpoint Objective Last 24 Hour Vital Signs Date Time Temp Pulse Resp B/P (MAP) Pulse Ox O2 Delivery O2 Flow Rate FiO2 06/11/17 16:00 97.5 81 18 124/90 95 Room Air 06/11/17 16:00 84 06/11/17 12:00 97.0 88 18 124/94 95 Room Air 06/11/17 12:00 83 06/11/17 08:36 87 18 Room Air 21 06/11/17 08:00 77 06/11/17 08:00 97.9 65 20 138/87 94 Room Air 06/11/17 04:00 75 06/11/17 04:00 97.2 89 20 138/97 92 Room Air 06/11/17 00:00 97.4 87 20 129/76 92 Room Air 06/11/17 00:00 77 06/10/17 20:00 98.3 93 21 139/93 95 Room Air 06/10/17 20:00 86 06/10/17 19:48 89 18 Room Air 21 Intake and Output 06/10/17 06/11/17 19:00 07:00 Intake Total 360 ml Output Total 650 ml 600 ml Balance -290 ml -600 ml Intake Oral 360 ml Output Urine Total 650 ml 600 ml Laboratory Tests Test 06/11/17 07:30 White Blood Count 7.3 K/UL (4.8-10.8) Red Blood Count 4.44 M/UL (4.70-6.10) L Hemoglobin 13.8 G/DL (14.2-18.0) L Hematocrit 39.6 % (42.0-52.0) L Mean Corpuscular Volume 89 FL (80-99) Mean Corpuscular Hemoglobin 31.0 PG (27.0-31.0) Mean Corpuscular Hemoglobin Concent 34.7 G/DL (32.0-36.0) Red Cell Distribution Width 11.3 % (11.6-14.8) L Platelet Count 247 K/UL (150-450) Mean Platelet Volume 9.4 FL (6.5-10.1) Neutrophils (%) (Auto) 69.3 % (45.0-75.0) Lymphocytes (%) (Auto) 18.9 % (20.0-45.0) L Monocytes (%) (Auto) 9.1 % (1.0-10.0) Eosinophils (%) (Auto) 2.1 % (0.0-3.0) Basophils (%) (Auto) 0.7 % (0.0-2.0) Sodium Level 137 MMOL/L (136-145) Potassium Level 3.4 MMOL/L (3.5-5.1) L Chloride Level 102 MMOL/L (98-107) Carbon Dioxide Level 30 MMOL/L (21-32) Anion Gap 5 mmol/L (5-15) Blood Urea Nitrogen 9 mg/dL (7-18) Creatinine 0.8 MG/DL (0.55-1.30) Estimat Glomerular Filtration Rate > 60 mL/min (>60) Glucose Level 88 MG/DL (74-106) Calcium Level 8.7 MG/DL (8.5-10.1) Troponin I 0.017 ng/mL (0.000-0.056) Microbiology Date/Time Source Procedure Growth Status 06/09/17 11:53 Nasal Nares MRSA Culture - Final NO METHICILLIN RESISTANT STAPH AUREUS... Complete 06/09/17 11:53 Rectum VRE Culture - Final NO VANCOMYCIN RESISTANT ENTEROCOCCUS ... Complete VERNON ARANDA Jun 11, 2017 19:39
[2017-06-11 20:00] VITALS: BP 122/95
--- NOTE | 2017-06-11 20:46 | Consultation ---
DATE OF CONSULTATION: 06/11/2017 PAIN MANAGEMENT CONSULTATION CONSULTING PHYSICIAN: Katherine Helton M.D. PHYSICIAN TELECOMMUNICATIONS CONSULTANT: Leo Gipson REFERRING PHYSICIAN: Haris Lopez M.D. CHIEF COMPLAINT: Neck and low back pain. HISTORY OF PRESENT ILLNESS: This is a 56-year-old male who is being seen on the telemetry floor of [facility] for initial comprehensive pain management consultation. The patient is a known patient from prior admission and reports that he has been in the halfway since his last admission here in the hospital receiving methadone 5 mg tablet every 12 hours scheduled with Dilaudid 4 mg tablets every four hours as needed for severe pain. He was admitted under the care of Dr. Lopez. He is seen by policy advisor due to chest pain, ruling out acute coronary syndrome. Continues to complain of neck and low back pain, which he says is chronic due to a fall injuring his neck and lower back. No recent MRI has been done, having weakness in his lower extremities with severe pain, more so with movement. Due to this, we were consulted so that the patient would have adequate pain control while here in the hospital. The patient at this time is on methadone 5 mg twice a day with Dilaudid 4 mg tablets every four hours scheduled. Discussed the patient about switching the Dilaudid to an as needed medication and he agrees. We will order MRI of the neck and lower back to rule out further pathology in those areas at this time. REVIEW OF SYSTEMS: Denies rash, fever, chills, sweating, dizziness, drowsiness, or change in his weight. No shortness of breath, chest pain, palpitations, or cough. No nausea, vomiting, diarrhea, or blood in the stool or urine. No bowel or bladder incontinence. No dysuria. He is complaining of neck and low back pain. PHYSICAL EXAMINATION: GENERAL: Alert, awake, and oriented x3. VITAL SIGNS: Blood pressure is 124/90, heart rate is 81, oxygen saturation 95%, respiratory rate is 18, and temperature is 97.5 degrees Fahrenheit. LUNGS: Decreased breath sounds bilaterally. HEART: Regular. ABDOMEN: Benign. BACK: Range of motion is decreased on flexion and extension with tenderness to paraspinal muscles. No tenderness to trapezius or rhomboid muscles. EXTREMITIES: No cyanosis. No clubbing. No edema noted. NEUROLOGICAL: Marked weakness noted in the bilateral lower extremities. ASSESSMENT AND PLAN: This is a 56-year-old male with lumbar and cervical degenerative disk disease, lumbar cervical spondylosis, lumbar cervical radiculopathy, and narcotic dependency. The patient will be continued on methadone 5 mg tablet twice a day. We will change the Dilaudid 4 mg tablets to every four hours as needed for severe pain and order an MRI of the cervical lumbar spine at this time without contrast to rule out further pathology in the neck and lower back. The patient was discussed with Dr. Helton and Dr. Hleton concurred. We will follow the patient. Thank you very much for the courtesy of this consultation. aKtherine Helton M.D. CAIN Gipson DR: SUE JOB#: [id number] CC:
[2017-06-11] MEDS ORDERED: Nitroglycerin Subl 0.4mg tab SL PRN (23:00)
[2017-06-11] MEDS ORDERED: dilTIAZem HCl 25mg/5ml Inj IV PRN (23:00)
[2017-06-12] MEDS ORDERED: Enalaprilat 2.5mg/2ml Inj IV PRN
[2017-06-12 00:54] VITALS: BP 142/96
[2017-06-12] MEDS ORDERED: Albuterol/Ipratropium 3ml neb HHN PRN (01:00)
[2017-06-12] MEDS ORDERED: HYDROmorphone 4mg tab ORAL PRN (01:30)
[2017-06-12 04:26] VITALS: BP 133/86
--- NOTE | 2017-06-12 07:53 | Pulmonology Progress Note ---
Assessment/Plan Assessment/Plan ASSESSMENT CP likely due to MS spine pain anxiety cervical and lumbar DDD cervical and lumbar spondylosis cervical and lumbar radiculopathy narcotic dependency hyperlipidemia PLAN OF CARE transferred to [place] from tele serial troponin negative , ECG no acute ischemic changes, ruled out for acute AR Cardio follows due to OWEN ( new) had stress test which was non-ischemic ECHO with pEF 60-65% and RVSP of 21 CXR negative per cardio chest pain not pleuritic, likely of musculoskeletal/spine~ origin Lipid panel with elevated TC and LDL educated on low fat low cholesterol diet, start on statin on ASA O2 HHN prn DVT prophylaxis pain management pain specialist follows MRI C and L spine, do as outpt- discussed with pain specialist dc today to [facility] case discussed and evaluated by supervising physician Subjective Allergies: Coded Allergies: No Known Allergies (Unverified , 08/10/13) Subjective denies chest pain, SOB Objective Last 24 Hour Vital Signs Date Time Temp Pulse Resp B/P (MAP) Pulse Ox O2 Delivery O2 Flow Rate FiO2 06/12/17 04:26 97.2 72 20 133/86 92 Room Air 06/12/17 00:54 96.4 63 20 142/96 90 Room Air 06/11/17 20:11 86 18 Room Air 21 06/11/17 20:00 76 06/11/17 20:00 97.3 76 18 122/95 93 Room Air 06/11/17 16:00 97.5 81 18 124/90 95 Room Air 06/11/17 16:00 84 06/11/17 12:00 97.0 88 18 124/94 95 Room Air 06/11/17 12:00 83 06/11/17 08:36 87 18 Room Air 21 06/11/17 08:00 77 06/11/17 08:00 97.9 65 20 138/87 94 Room Air Intake and Output 06/11/17 06/12/17 19:00 07:00 Intake Total 240 ml Output Total 750 ml Balance -510 ml Intake Oral 240 ml Output Urine Total 750 ml General Appearance: no acute distress HEENT: normocephalic, atraumatic, anicteric, mucous membranes moist Respiratory/Chest: lungs clear, no respiratory distress, no accessory muscle use Cardiovascular: normal rate, no JVD Abdomen: normal bowel sounds, soft, non tender - obese Extremities: no edema, pedal pulses normal Neurologic/Psychiatric: abnormal gait - unsteady , alert, oriented x 3, responsive Musculoskeletal: normal muscle bulk Microbiology Date/Time Source Procedure Growth Status 06/09/17 11:53 Nasal Nares MRSA Culture - Final NO METHICILLIN RESISTANT STAPH AUREUS... Complete 06/09/17 11:53 Rectum VRE Culture - Final NO VANCOMYCIN RESISTANT ENTEROCOCCUS ... Complete Current Medications Medications (Trade) Dose Ordered Sig/Nahomi Route PRN Reason Start Time Stop Time Status Last Admin Dose Admin Acetaminophen (Tylenol) 650 mg Q4H PRN ORAL Fever/Headache/Mild Pain 06/11/17 23:45 07/09/17 15:44 Albuterol/ Ipratropium (Albuterol/ Ipratropium) 3 ml EVERY 4 HOURS PRN HHN Shortness of Breath 06/12/17 01:00 06/14/17 15:44 Aspirin (ASA) 162 mg DAILY ORAL 06/12/17 09:00 07/10/17 08:59 Diazepam (Valium) 2.5 mg DAILY PRN ORAL ANXIETY 06/12/17 09:00 06/16/17 15:44 Duloxetine HCl (Cymbalta) 60 mg DAILY ORAL 06/12/17 09:00 07/10/17 08:59 Enalaprilat (Vasotec) 2.5 mg EVERY 6 HOURS PRN IV sbp more than 160 06/12/17 00:00 07/09/17 15:44 Gabapentin (Neurontin) 300 mg FOUR TIMES A DAY ORAL 06/12/17 09:00 07/09/17 17:59 Heparin Sodium (Porcine) (Heparin 5000 units/ml) 5,000 units EVERY 12 HOURS SUBQ 06/12/17 09:00 07/09/17 20:59 Hydromorphone HCl (Dilaudid) 4 mg Q4H PRN ORAL severe pain 06/12/17 01:30 06/18/17 17:29 Meclizine HCl (Antivert) 25 mg THREE TIMES A DAY ORAL 06/12/17 09:00 07/09/17 17:59 Methadone HCl (Methadone HCl) 5 mg Q12HR ORAL 06/12/17 09:00 06/16/17 20:59 Nitroglycerin (Ntg) 0.4 mg Every 5 Minutes PRN SL Prn Chest Pain 06/11/17 23:00 07/09/17 15:44 Ondansetron HCl (Zofran) 4 mg Q6H PRN IVP Nausea & Vomiting 06/12/17 03:45 07/09/17 15:44 Polyethylene Glycol (Miralax) 17 gm DAILYPRN PRN ORAL Constipation 06/12/17 15:45 07/09/17 15:44 Temazepam (Restoril) 15 mg HSPRN PRN ORAL Insomnia 06/12/17 15:45 06/16/17 15:44 William ([facility])Tona NP Jun 12, 2017 07:53
[2017-06-12 08:00] VITALS: BP 130/86
[2017-06-12] MEDS ORDERED: Heparin 5000 units/ml inj SUBQ SCH (09:00)
[2017-06-12] MEDS ORDERED: Aspirin Baby 81mg ORAL SCH (09:00)
[2017-06-12] MEDS ORDERED: Meclizine 25mg tab ORAL SCH (09:00)
[2017-06-12] MEDS ORDERED: DULoxetine 30mg cap ORAL SCH (09:00)
--- NOTE | 2017-06-12 09:34 | General Progress Note ---
Assessment/Plan Assessment/Plan (1) Cervical and Lumbar DDD (2) Cervical and Lumbar Spondylosis (3) Cervical and Lumbar Radiculopathy (4) Narcotic dependency Pt to be continued on Methadone and Dilaudid. MRIs pending D/w Dr. Helton and he concurred. Subjective Date patient seen: Jun 12, 2017 Time patient seen: 09:15 - am Constitutional: Reports: no symptoms HEENT: Reports: no symptoms Cardiovascular: Reports: no symptoms Respiratory: Reports: no symptoms Gastrointestinal/Abdominal: Reports: no symptoms Genitourinary: Reports: no symptoms Neurologic/Psychiatric: Reports: weakness Endocrine: Reports: no symptoms Hematologic/Lymphatic: Reports: no symptoms Allergies: Coded Allergies: No Known Allergies (Unverified , 08/10/13) Subjective Patient is in bed and reports that his pain is at a moderate level and controlled on the Methadone and Dilaudid. MRIs are pending to be performed later today. Objective Last 24 Hour Vital Signs Date Time Temp Pulse Resp B/P (MAP) Pulse Ox O2 Delivery O2 Flow Rate FiO2 06/12/17 08:00 97.2 67 20 130/86 94 06/12/17 04:26 97.2 72 20 133/86 92 Room Air 06/12/17 00:54 96.4 63 20 142/96 90 Room Air 06/11/17 20:11 86 18 Room Air 21 06/11/17 20:00 76 06/11/17 20:00 97.3 76 18 122/95 93 Room Air 06/11/17 16:00 97.5 81 18 124/90 95 Room Air 06/11/17 16:00 84 06/11/17 12:00 97.0 88 18 124/94 95 Room Air 06/11/17 12:00 83 Intake and Output 06/11/17 06/12/17 19:00 07:00 Intake Total 240 ml Output Total 750 ml Balance -510 ml Intake Oral 240 ml Output Urine Total 750 ml Height (Feet): 5 Height (Inches): 10.00 Weight (Pounds): 225 General Appearance: no apparent distress, alert EENT: PERRL/EOMI, normal ENT inspection Neck: non-tender, normal alignment Cardiovascular: normal rate, regular rhythm Respiratory/Chest: lungs clear, normal breath sounds Abdomen: non tender, soft Extremities: non-tender Edema: trace edema Neurologic: alert, oriented x 3 Skin: warm/dry JESSICA BARBOUR Jun 12, 2017 09:34
[2017-06-12 11:41] VITALS: BP 138/92
[2017-06-12] MEDS ORDERED: ATORVASTATIN CA10 MG ORAL (11:57)
--- NOTE | 2017-06-12 14:48 | Cardiology Report ---
APPROVED REPORT EKG Measurement Heart [id number] Sinus Tachcardia Possible Lateral infarct, age undetermined Prolonged QT Abnormal ECG
[2017-06-12] MEDS ORDERED: Miralax 17gm pkt ORAL PRN (15:45)
--- NOTE | 2017-06-15 13:53 | Discharge Summary ---
Discharge Summary Hospital Course Date of Admission Jun 09, 2017 at 11:43 Date of Discharge Jun 12, 2017 at 13:50 Admitting Diagnosis ACUTE CORONARY SYNDROME HPI Kian Dan is a 56 year old male who was admitted on Jun 09, 2017 at 11: 43 for Acute Coronary Syndrome Hospital Course dc summary #[id number] Discharge Medications New Medications: Atorvastatin Calcium* (Lipitor*) 10 Mg Tablet 10 MG ORAL BEDTIME, #30 TAB Continued Medications: Acetaminophen* (Acetaminophen 325MG Tablet*) 325 Mg Tablet 650 MG ORAL Q4H PRN for Fever/Headache/Mild Pain, TAB Al Hydroxide/mg Hydroxide (Mag-Al Liquid) 30 Ml Oral.susp 30 ML ORAL Q6HR for DYSPEPSIA, ML Docusate Sodium* (Docusate Sodium*) 100 Mg Capsule 100 MG ORAL TWICE A DAY, CAP Duloxetine Hcl* (Cymbalta*) 30 Mg Capsule.dr 60 MG ORAL DAILY, #30 CAP Gabapentin (Neurontin) 300 Mg Cap 300 MG ORAL FOUR TIMES A DAY, CAP Methadone Hcl* (Methadone*) 5 Mg Tablet 5 MG PO BID, #10 TAB 0 Refills Mirtazapine* (Remeron*) 15 Mg Tablet 7.5 MG ORAL BEDTIME, #30 TAB Multivitamin (Multi Vitamin Daily) 1 Each Tablet 1 TAB ORAL DAILY, #30 TAB 0 Refills Polyethylene Glycol 3350* (Miralax*) 17 Gm Powd.pack 17 GM ORAL HS for Constipation, PACKET Sennosides* (Senno*) 8.6 Mg Tablet 2 TAB ORAL BEDTIME, TAB Temazepam* (Restoril*) 7.5 Mg Capsule 7.5 MG ORAL BEDTIME, #10 CAP 0 Refills Discontinued Medications: Diazepam* (Valium*) 2 Mg Tablet 2.5 MG ORAL DAILY PRN for ANXIETY, #30 TAB 0 Refills Diphenhydramine HCl (Benadryl) 25 Mg Capsule 25 MG PO, CAP Hydromorphone HCl (Dilaudid) 4 Mg Tab 4 MG ORAL Q4H, #20 TAB 0 Refills Ibuprofen* (Motrin*) 800 Mg Tablet 800 MG ORAL BID, #30 TAB 0 Refills Loratadine (Loratadine) 10 Mg Capsule 10 MG PO DAILY, CAP Lorazepam* (Ativan*) 1 Mg Tablet 1 MG ORAL THREE TIMES A DAY for 4 Days, TAB Lorazepam* (Ativan*) 0.5 Mg Tablet 0.5 MG ORAL once daily for vertigo for 7 Days, #10 TAB Meclizine Hcl* (Meclizine*) 25 Mg Tablet 25 MG ORAL THREE TIMES A DAY for 7 Days, #30 TAB Melatonin (Melatonin) 3 Mg Tablet 9 MG ORAL BEDTIME PRN for Insomnia, TAB Zolpidem Tartrate* (Ambien*) 10 Mg Tablet 10 MG ORAL BEDTIME PRN for Insomnia, TAB 0 Refills Zolpidem Tartrate* (Ambien*) 5 Mg Tablet 5 MG ORAL BEDTIME PRN for Insomnia, TAB Discharge Condition Upon Discharge: stable Discharge Disposition Patient was discharged to SNF/Subacute Facility(03) Discharge Diagnoses: William (Kat),Tona HIGGINBOTHAM Jun 15, 2017 13:53
--- NOTE | 2017-06-15 22:00 | Discharge Summary 2 SIG ---
DATE OF ADMISSION: 06/09/2017 DATE OF DISCHARGE: 06/12/2017 REASON FOR ADMISSION: 56-year-old male with history of musculoskeletal problems such as neck and shoulder fracture in 2015, chronic back pain, seizure disorder, anxiety disorder, and opioid dependency, presented to emergency department with complaint of chest pain for one day. He denied any trauma or shortness of breath. He denied smoking. No family history of cardiac disease at a young age. The patient also admitted to chronic neck and shoulder pain. Blood pressure was elevated at 152/109 upon evaluation. EKG revealed normal sinus rate, no acute ischemic changes. Chest x-ray revealed no acute cardiopulmonary pathology. Stable hemoglobin and hematocrit. No leukocytosis. Stable electrolytes except potassium -3.3. Troponin negative. Pro BNP -74. Urinalysis negative for evidence of UTI. The patient was admitted with chest pain, rule out acute coronary syndrome. HOSPITAL COURSE: The patient admitted. Cardiology and pain specialist consults were requested. The patient was initially on telemetry floor. Serial troponin were negative. EKG revealed no acute ischemic changes. The patient was ruled out for acute myocardial infarction. Hand I Cutter closely followed. Since the patient reported dyspnea on exertion, which was new for this patient, he had a stress test, which was nonischemic. Echocardiogram revealed preserved ejection fraction of 60% to 65%, right ventricular systolic pressure of 21. Per Cardiology, chest pain was not pleuritic, but likely of musculoskeletal origin from spine, from chronic neck and back pain. Lipid panel revealed elevated total cholesterol and elevated LDL. The patient educated on low-fat and low-cholesterol diet and started on statin. Aspirin was continued. Supplemental oxygen and pulmonary toilet provided as needed. DVT prophylaxis provided. Pain specialist seen and evaluated the patient. Pain management was addressed as per pain specialist recommendations. Blood pressure was stable a lizabeth was controlled. Pain specialist ordered MRI of the cervical and lumbar spine. However, discussed with pain specialist, and tests can be done as outpatient. The patient was stable to discharge to shelter facility. Followup with medical doctor at the facility. Followup with the pain specialist and outpatient MRI C and L-spine. FINAL DIAGNOSES: 1. Chest pain due to musculoskeletal pain, likely due to neck and back pain. 2. Anxiety. 3. Cervical and lumbar degenerative disk disease. 4. Cervical and lumbar spondylosis. 5. Cervical and lumbar radiculopathy. 6. Narcotic dependency. 7. Hyperlipidemia. DISCHARGE MEDICATIONS: See medication reconciliation list. DISCHARGE INSTRUCTIONS: The patient was discharged to shelter facility. FOLLOWUP: Followup with medical doctor at the facility. Haris Lopez M.D. Tona GuptaNorth Central Bronx HospitalMiles N.PChristy DR: Sim JOB#: [id number] CC: FRANCISCO
== END 2017-06-12 13:50 | DRG 552 ==
LOC: EDBD 10:10 → EDUNIT# 10:10 → EMR 10:15 → 2E 11:43 → EDBEDREQ 12:14 → 4W 06-11 22:44
DX: M50.10 Cervical disc disorder with radiculopathy, unspecified cervical region (principal); F11.20 Opioid dependence, uncomplicated; M47.812 Spondylosis without myelopathy or radiculopathy, cervical region; M51.16 Intervertebral disc disorders with radiculopathy, lumbar region; R06.09 Other forms of dyspnea; R07.89 Other chest pain; S13.9XXA Sprain of joints and ligaments of unspecified parts of neck, initial encounter; M47.816 Spondylosis without myelopathy or radiculopathy, lumbar region; E78.5 Hyperlipidemia, unspecified; F41.9 Anxiety disorder, unspecified; Z87.891 Personal history of nicotine dependence; X58.XXXA Exposure to other specified factors, initial encounter; Y92.89 Other specified places as the place of occurrence of the external cause
CPT/HCPCS: 36415; 71045; 78452; 80048; 80053; 80061; 81003; 83880; 84443; 84484; 85025; 85610; 85730; 86140; 87081; 93005; 93017; 93306; 94664; 99285; J8499